=== PATIENT | female | born 1975 | race American Indian/Alaskan Native ===

== ENCOUNTER 2020-01-23 21:51 | Inpatient (IN) | payer SELFPAY ==
[2020-01-24] MEDS ORDERED: Labetalol HCl 100 MG/20 ML VIAL SLOW IVP PRN (00:57)
[2020-01-24] MEDS ORDERED: Promethazine HCl 12.5 MG in Sodium Chloride 0.9% 50 ML IVPB PRN (00:57)
[2020-01-24] MEDS ORDERED: Guaifenesin DM 100-10/5 ML UDCUP PO PRN (00:57)
[2020-01-24] MEDS ORDERED: hydrALAZINE 20 MG/ML VIAL SLOW IVP PRN (00:57)
[2020-01-24] MEDS ORDERED: Acetaminophen 325 MG TAB PO PRN (00:57)
[2020-01-24] MEDS ORDERED: cloNIDine 0.1 MG TAB PO PRN (00:57)
[2020-01-24] MEDS ORDERED: Ondansetron PF 4 MG/2 ML Vial IVP PRN (00:57)
[2020-01-24] MEDS ORDERED: Bisacodyl 5 MG TAB PO PRN (00:59)
[2020-01-24] MEDS ORDERED: Bisacodyl 10 MG SUPP PR PRN (00:59)
--- NOTE | 2020-01-24 01:01 | PDOC.HHP ---
Hospitalist HPI - History of Present Illness Edema History of Present Illness: Patient is a 44 year old female with PMH autoimmune hepatitis who presents as transfer from [place] for 1 week bilateral lower extremity swelling and COLIN with 1-2 blocks walking. PAtient reports autoimmune hepatitis appx 10 years ago , had a biopsy but does not remember what treatment has been done. She drank some pickle juice a week ago. she reports PND, COLIN. she has 3-4+ pitting edema, bibasilar rales, signs of overload on CXR, BNP noted 3000+. She denies history of heart disease. No chest pain. saw pcp dr morales earlier who referred her to ED. moved here 9 years ago, used to take medication but cannot remember what. has history of HTN untreated as well. denies history of DVT, PE, cardiac workup. no fever, cough, chest pain. Patient transferred for workup of volume overload. Hospitalist ROS - Review of Systems Constitutional: denies: fever, chills, sweats, weakness, malaise, other Eyes: denies: pain, vision change, conjunctivae inflammation, eyelid inflammation, redness, other ENT: denies: ear pain, ear discharge, nose pain, nose discharge, nose congestion , mouth pain, mouth swelling, throat pain, throat swelling, other Respiratory: reports: SOB with excertion. denies: cough, dry, shortness of breath, hemoptysis, pleuritic pain, sputum, wheezing, other Cardiovascular: reports: edema. denies: chest pain, palpitations, orthopnea, paroxysmal noc. dyspnea, light headedness, other Gastrointestinal: denies: nausea, vomiting, abdominal pain, diarrhea, constipation, melena, hematochezia, other Genitourinary: denies: dysuria, frequency, incontinence, hematuria, retention, other Musculoskeletal: denies: neck pain, shoulder pain, arm pain, back pain, hand pain, leg pain, foot pain, other Skin: denies: rash, lesions, melissa, bruising, other Neurological: denies: weakness, numbness, incoordination, change in speech, confusion, seizures, other All other systems reviewed; all pertinent +/- noted in HPI/Subj Hospitalist History - Past Medical History Other Medical History: autoimmune hepatitis avascular necrosis of knee - Past Surgical History Past Surgical History: reports: Other Surgical History: liver biopsy - Family History Other Family History: sister with rheumatoid arthritis - Social History Smoking Status: Never smoker Alcohol: reports: None Drugs: reports: none - Exam General Appearance: NAD, awake alert Eye: PERRL, anicteric sclera ENT: normocephalic atraumatic, no oropharyngeal lesions, moist mucosa Neck: supple, symmetric, no JVD, no thyromegaly, no lymphadenopathy, no carotid bruit Heart: RRR, no murmur, no gallops, no rubs, normal peripheral pulses Respiratory: CTAB, no wheezes, no rales, no ronchi, normal chest expansion, no tachypnea, normal percussion Respiratory - other findings: +crackles Gastrointestinal: soft, non-tender, non-distended, normal bowel sounds, no palpable masses, no hepatomegaly, no splenomegaly, no bruit Extremities: no cyanosis, no clubbing Extremities - other findings: 3+ puitting edema Skin: normal turgor, no lesions, no rashes Neurological: cranial nerve grossly intact, normal sensation to touch, no weakness, no focal deficits, no new deficit Musculoskeletal: normal tone, normal strength, no muscle wasting Psychiatric: normal affect, normal behavior, A&O x 3 Hospitalist Results - Labs Result Diagrams: 01/24/20 04:19 01/24/20 04:19 Lab results: reviewed, see HPI for pertinent positives Additional comment: outside CXR report reviewed, possible CHF, possible RLL atalectasis with leevated hemidiaphragm - EKG Interpretation EKG: sinus tachycardia rate 121, no st elevation or dropped beats Hospitalist H&P A/P - Plan Plan: Patient is a 44 year old female with PMH autoimmune hepatitis who presents as transfer from [place] for 1 week bilateral lower extremity swelling and COLIN with 1-2 blocks walking. # pedal edema, weight gain, volume overload on imaging - patient with history of autoimmune hepatitis and now presents with 30 lb weight gain, pedal edema, COLIN, labs and imaging suggestive of fluid overload, suspect CHF vs decompensated cirrhosis - admitted to floor - start diuresis with lasix - ordered echo and US abdomen to help localize which organ is failing, also ordered basic labs which may help to localize further, consider getting specialist input from GI or cardiology based on results - follow up CTA report once finalized # history of AI hepatitis - as above # htn - not treated at home, prn meds ordered, follow bps # UTI - weakly positive UA, in setting of CHF exacerbtaion or other organ failure will start ceftriaxone, culture ordered in [place]
[2020-01-24 01:13] LABS: #Basophils 0.1 thou/uL (0.0-0.2); #Eosinphils 0.2 thou/uL (0.0-0.7); #Lymphocytes 0.8 thou/uL (1.20-3.40); #Monocytes 0.7 thou/uL (0.11-0.59); #Neutrophils 4.5 thou/uL (1.40-6.50); %Basophils 0.9 % (0.0-1.0); %Eosinophils 2.9 % (0.0-10.0); %Lymphocytes 12.8 % (21.0-51.0); %Monocytes 11.5 % (0.0-10.0); %Neutrophils 71.9 % (42.0-75.0); Hemoglobin 10.1 g/dL (12.0-16.0); Mean Corpuscular HGB CONC 31.9 g/dL (32.0-36.0); Mean Corpuscular Hemoglobin 24.2 pg (27.0-31.0); Mean Platelet Volume 8.8 fL (7.4-10.4); Platelet Count 337 thou/uL (130-400); RBC Distribution Width 17.2 % (11.5-14.5); Red Blood Cell (RBC) Count 4.19 mill/uL (4.20-5.40); White Blood Cell (WBC) Count 6.3 thou/uL (4.8-10.8)
[2020-01-24 01:14] VITALS: BMI 23.2
[2020-01-24 01:30] LABS: Lactic Acid 1.4 mmol/L (0.5-2.2)
[2020-01-24 01:37] LABS: BHCG - Serum Negative (NEGATIVE); Pregs Control Background? CLEAR/WHITE (CLR/WHITE); Pregs Control Bar Appear? YES (CONTROL BAR)
[2020-01-24 01:39] LABS: ALT (SGPT) 47 U/L (8-55); AST (SGOT) 77 U/L (5-34); Albumin 3.2 g/dL (3.5-5.0); Alkaline Phosphatase 89 U/L (40-110); Anion Gap 13 mmol/L (10-20); BUN (Urea Nitrogen) 12 mg/dL (7.0-18.7); Bilirubin, Total 1.1 mg/dL (0.2-1.2); Calc. Creatinine Clearance 67 mL/min (70-130); Calcium 8.7 mg/dL (7.8-10.44); Carbon Dioxide 24 mmol/L (22-29); Chloride 100 mmol/L (98-107); Estimated GFR-MDRD 61; Globulin 3.9 g/dL (2.4-3.5); Glucose 98 mg/dL (70-105); Lipase 38 U/L (8-78); Potassium 3.4 mmol/L (3.5-5.1); Protein, Total 7.1 g/dL (6.0-8.3); Sodium 134 mmol/L (136-145)
[2020-01-24 02:07] LABS: CKMB 7.9 ng/mL (0-6.6)
[2020-01-24 04:43] LABS: #Basophils 0.1 thou/uL (0.0-0.2); #Eosinphils 0.2 thou/uL (0.0-0.7); #Monocytes 0.9 thou/uL (0.11-0.59); #Neutrophils 4.7 thou/uL (1.40-6.50); %Basophils 1.5 % (0.0-1.0); %Monocytes 12.3 % (0.0-10.0); %Neutrophils 68.3 % (42.0-75.0); Hemoglobin 9.9 g/dL (12.0-16.0); INR-International Normal Ratio 1.4; Mean Corpuscular HGB CONC 29.9 g/dL (32.0-36.0); Mean Corpuscular Hemoglobin 22.8 pg (27.0-31.0); Platelet Count 339 thou/uL (130-400); Prothrombin Time 17.3 sec (12.0-14.7); RBC Distribution Width 17.3 % (11.5-14.5); Red Blood Cell (RBC) Count 4.33 mill/uL (4.20-5.40); White Blood Cell (WBC) Count 6.9 thou/uL (4.8-10.8)
[2020-01-24 05:12] LABS: ALT (SGPT) 48 U/L (8-55); AST (SGOT) 75 U/L (5-34); Albumin 3.2 g/dL (3.5-5.0); Alkaline Phosphatase 87 U/L (40-110); Bilirubin, Direct 0.8 mg/dL (0.1-0.3)
[2020-01-24 05:15] LABS: Anion Gap 14 mmol/L (10-20); BUN (Urea Nitrogen) 11 mg/dL (7.0-18.7); Calc. Creatinine Clearance 74 mL/min (70-130); Calcium 8.6 mg/dL (7.8-10.44); Carbon Dioxide 21 mmol/L (22-29); Chloride 102 mmol/L (98-107); Estimated GFR-MDRD 70; Glucose 79 mg/dL (70-105); Magnesium 1.6 mg/dL (1.6-2.6); Potassium 3.4 mmol/L (3.5-5.1); Sodium 134 mmol/L (136-145)
[2020-01-24 05:31] LABS: CKMB 7.3 ng/mL (0-6.6); Critical Call CKMB RESULT DECREASING
--- NOTE | 2020-01-24 07:45 | ULT ---
US Gallbladder RUQ History: Edema. Evaluate for cirrhosis Comparison: Reference is made to a CT of the chest prior day Findings: Real-time grayscale and color evaluation right upper quadrant of the abdomen was performed. Moderate-large right layering pleural effusion. Mild contour nodularity of the liver. No mass. Mild congestive changes of the gallbladder. Right kidney measures 10.7 x 5.3 x 5 cm without mass, hyd ronephrosis or abnormal calcifications. No intrahepatic or extra hepatic biliary dilatation. No cholelithiasis. Pancreas not well seen. No dilatation of the common bile duct. Impression: 1. Mild surface nodularity of the liver suggesting early cirrhosis. 2. Large right layering pleural effusion. 3. Patent main portal vein with antegrade flow. 4. Congestive changes of the gallbladder.
[2020-01-24] MEDS: Enoxaparin Sodium 40 MG/0.4 ML SYRINGE SC SCH (08:59)
[2020-01-24] MEDS: Aspirin 81 mg Enteric Coated Tablet PO SCH (08:59)
[2020-01-24] MEDS: Famotidine 20 MG TAB PO SCH ×2 (09:00→21:23)
[2020-01-24] MEDS: Furosemide 40 MG TAB PO SCH ×2 (09:00→13:10)
[2020-01-24 09:53] LABS: Iron 16 ug/dL (50-170); Iron Binding Capacity, Total 479 mcg/dL (265-497)
[2020-01-24] MEDS ORDERED: Carvedilol 3.125 MG TAB PO SCH ×2 (11:45→17:00)
[2020-01-24] MEDS ORDERED: Potassium Chloride 20 MEQ TAB PO SCH ×2 (11:45→18:00)
[2020-01-24] MEDS ORDERED: Furosemide 20 MG/2 ML VIAL SLOW IVP SCH (13:15)
--- NOTE | 2020-01-24 14:31 | CON ---
DATE OF CONSULTATION: 01/24/2020 REASON FOR CONSULTATION: Congestive heart failure, systolic, acute on chronic. HISTORY OF PRESENT ILLNESS: Ms. Monroy is a 44-year-old woman she has noted some swelling of her legs, then she noticed some difficulty breathing, and then finally difficulty breathing when she tried to lie down. She did not have chest pain or pressure. Otherwise, the patient has been in relatively good physical condition without any medicine. No previous cardiac history. She has been found to have severely depressed left ventricular function on echocardiogram. ALLERGIES: AMOXICILLIN, SULFA. REVIEW OF SYSTEMS: CONSTITUTIONAL: No significant weight gain or loss. VISION: No changes. HEARING: No changes. PULMONARY: No cough or wheezing. GASTROINTESTINAL: No nausea, vomiting, or diarrhea. SKIN: No rashes. NEUROLOGIC: No unilateral weakness or numbness. PSYCHIATRIC: No unusual depression or anxiety. CARDIAC: From a cardiac standpoint, did not have any chest pain. She did have shortness of breath and swelling as mentioned. PHYSICAL EXAMINATION: GENERAL: This is a very pleasant 44-year-old woman. VITAL SIGNS: Height 5 feet 2 inches tall, weight 125 pounds, petite. Blood pressure 122/87, pulse is 118, sinus. EYES: Sclerae nonicteric. MOUTH: Mucous membranes moist. NECK: Supple. No lymphadenopathy. LUNGS: Clear. CARDIAC: She is tachycardic . No murmur, rub, or gallop. ABDOMEN: Soft and nontender. EXTREMITIES: Warm, dry. No clubbing or cyanosis. There is moderate peripheral edema. PERTINENT LABORATORY DATA: Potassium is 3.4, it was 3.9 on the . The I and O are minus 960. Echocardiogram shows severely depressed left ventricular function with an ejection fraction of 15% to 20% and very dilated left ventricle. Also, severe mitral regurgitation, severe tricuspid insufficiency. EKG, sinus rhythm with some T-wave inversions in the lateral leads. ASSESSMENT: 1. Probable cardiomyopathy with global hypokinesis, enlarged right atrium and left atrium, and globally hypokinetic left ventricle. 2. Mitral regurgitation, probably secondary to dilated left ventricle. 3. Sinus tachycardia. PLAN: 1. Agree with beta blockers. 2. We will start Entresto tonight. 3. Continue diuretics. 4. She also had an episode of nonsustained ventricular tachycardia, she will need a LifeVest before going home. We will continue to follow with you. We will try to get her on therapeutic doses of Entresto and beta blockers. Ultimately, catheterization should be considered, but seems very likely this is a cardiomyopathy, not coronary artery disease. We will follow with you. Job ID: [id number]
[2020-01-24 15:05] LABS: Iron 15 ug/dL (50-170); Iron Binding Capacity, Total 509 mcg/dL (265-497)
--- NOTE | 2020-01-24 15:10 | PDOC.EVN ---
Event Note - Event Note Event Note: Patient was seen and examined. Records reviewed. Patient is from [place]. She has lived here for the last 9 years. She has not reestablished with her medical team in this area. She does have a history of the autoimmune hepatitis for which she was taking azathioprine. She stopped taking that when she moved here. She presented with significant peripheral edema. She does reportedly have some abdominal distention at times as well. She is feeling better after some diuresis. Her exam was notable for hyperdynamic cardiac exam and persistent 2-3+ pitting edema of the lower extremities bilaterally. I have reviewed the case with cardiology. Her echocardiogram shows a substantially reduced ejection fraction at 15 to 20% with severe TR. There is global hypokinesis consistent with a cardiomyopathy that is likely nonischemic. She was started on Coreg. Cardiology will initiate Entresto. We will continue to diurese and titrate her medications. She will need a LifeVest. I also reviewed the case with GI. At this point the autoimmune hepatitis is likely not significantly active. He did not feel there was an indication to resume steroids at this time especially in light of the cardiac situation. We will obtain a TSH as she remains persistently tachycardic.
[2020-01-24 15:28] LABS: HBCM Index 0.51 S/CO (0-0.79); HBSAg Index 0.17 S/CO (0-0.99); Hep A IgM AB Non-Reactive (NonReactive); Hep B Surf Ag Non-Reactive S/CO (NonReactive); Hep C IgG Ab Non-Reactive (NonReactive); Hep C Index 0.15 S/CO (0-0.79); Hepatitis B Core IgM Abs Non-Reactive (NonReactive); Thyroid Stimulating Hormone 1.9797 uIU/mL (0.35-4.94)
--- NOTE | 2020-01-24 16:19 | CON ---
DATE OF CONSULTATION: 01/24/2020 REQUESTING PHYSICIAN: Tim Rasmussen MD REASON FOR CONSULTATION: History of autoimmune hepatitis, new fluid retention. HISTORY OF PRESENT ILLNESS: Milagros Monroy is a very pleasant 44-year-old woman who moved to the area a couple of years ago from [place]. She reports no prior history of cardiac disease. She says that about 9 years ago she presented with jaundice and was diagnosed eventually with autoimmune hepatitis on the basis of liver biopsy in [place]. She says she was treated with prednisone and then with azathioprine for several years. She reports that she discontinued the azathioprine on her own 2 or 3 years ago around the time she moved here, and never followed up with any GI or liver specialist since then. However, she had been doing very well, had no symptoms. She takes no medications, but then just over the past week, she has had acute development of severe lower extremity edema, dyspnea on exertion, and a 30-pound weight gain. She was having shortness of breath and abdominal distention and this all prompted her presentation. On admission, she was found to have a very elevated BNP, AST is elevated to 75, but otherwise LFTs are all normal. INR is 1.4. She had a CT angiogram of the chest, which showed large right pleural effusion, but no pulmonary embolus. She has developed anasarca with contrast reflux into the IVC. Abdominal ultrasound showed mild nodular liver contour, but was otherwise unremarkable with normal portal vein, but an echocardiogram earlier today showed severe global hypokinesis with ejection fraction 15% to 20%, severe mitral regurgitation and tricuspid regurgitation, all suggestive of cardiomyopathy. She has received Lasix for diuresis and is already feeling a lot better with regard to her shortness of breath and abdominal distention. She has been evaluated by Dr. Hayward earlier today. We are consulted due to the history of autoimmune hepatitis. The patient denies any history of recent jaundice. She never had any prior history of ascites or GI bleeding. There is no nausea or vomiting or abdominal pain. REVIEW OF SYSTEMS: Full review of systems including constitutional; head, eyes, ears, nose, and throat; GI; ; cardiovascular; respiratory; musculoskeletal; neurologic systems is negative except as noted in the HPI. PAST MEDICAL HISTORY: 1. Autoimmune hepatitis, evidently diagnosed in [place] about 9 years ago, off all medications for the past couple of years. 2. Hypertension. 3. Avascular necrosis of the knee. 4. . 5. Liver biopsy 8 or 9 years ago. ALLERGIES: AMOXICILLIN, SULFA, AND AZITHROMYCIN. MEDICATIONS: Outpatient medications: None. Inpatient medications: 1. Aspirin 81 mg daily. 2. Lovenox. 3. Pepcid 20 mg b.i.d. 4. Levofloxacin 750 mg daily. 5. Lasix 40 mg twice daily. FAMILY HISTORY: A sister had rheumatoid arthritis. SOCIAL HISTORY: No smoking, alcohol, or drug use. PHYSICAL EXAMINATION: VITAL SIGNS: Temperature 99.1, pulse 119, blood pressure 122/87, and 98% oxygen saturation on room air. GENERAL: A 44-year-old woman, sitting up in chair comfortably, in no distress. MENTAL: Alert and fully oriented. Pleasant, conversational. SKIN: No jaundice. No rashes were palpable. EYES: No scleral icterus. Extraocular movements intact. ENT: Mucous membranes moist. No oral lesions. LYMPHATICS: No submandibular or supraclavicular lymphadenopathy. THYROID: Nontender to palpation. HEART: Regular, tachycardia. Soft systolic murmur. LUNGS: Distant breath sounds on the right. Bibasilar crackles. No respiratory distress. ABDOMEN: Nondistended. Bowel sounds present. Soft and nontender to palpation throughout. EXTREMITIES: 2 to 3+ bilateral lower extremity pitting edema. NEUROLOGIC: Cranial nerves 2 through 12 intact bilaterally. VESSELS: Radial pulses 2+ bilaterally. LABORATORY STUDIES: BNP greater than 3000. WBC 6.9, hemoglobin 9.9, and platelets 339. INR 1.4. Sodium 134, potassium 3.4, BUN 11, creatinine 0.88, and glucose 79. Total bilirubin 1.0, alkaline phosphatase 87, AST 75, ALT 48, and albumin 3.2. CK 211 and troponin 0.03. Lipase only 38. Serum test negative. IMAGING STUDIES: Abdominal ultrasound shows mild nodular liver contour, no evidence of gallstones, normal common bile duct, there is a large right pleural effusion, and normal patent portal vein. CT angiogram of the chest showed no evidence of pulmonary embolus, there is a large right pleural effusion, she has anasarca, there is contrast reflux into the inferior vena cava. Echocardiogram shows ejection fraction of 15% to 20% with severe global hypokinesis, severe mitral regurgitation and tricuspid regurgitation, all suggestive of cardiomyopathy. ASSESSMENT AND PLAN: 1. Acute congestive heart failure. 2. Anasarca, secondary to acute congestive heart failure. 3. Dilated cardiomyopathy with global hypokinesis. 4. History of autoimmune hepatitis, on no treatment in the past couple of years. The patient does have a mild elevation in AST, but this may just be from passive hepatic congestion with her heart failure. I do not think it is likely that this represents active autoimmune hepatitis. It sounds like this was diagnosed about 9 years ago and was very stable on medication until at least a couple of years ago. I discussed with the patient that in many cases if LFTs remain normal the azathioprine can be discontinued after a few years and the hepatitis will often not recur. This may be the case with her. I think her current presentation is far more likely related to her severe dilated cardiomyopathy. From the liver standpoint, we will get some further lab workup including autoimmune markers, total IgG level, will rule out viral hepatitis, get iron studies, TSH, etc., but I do not anticipate any further aggressive liver workup. I see no indication to restart steroids or even azathioprine at this time. Continue with Cardiology evaluation and diuresis. Thank you for the consultation. We will follow along. Job ID: [id number]
[2020-01-24 18:59] LABS: ANA Symphony (Qualitative) POSITIVE (Negative); ANA Symphony (Quantitative) 1.9 Ratio (< 0.7 Negative); CENP IgG Antibody Less than 0.4 EliAU/mL (<7 Negative); EliA Vaculitis New Method **** NEW METHOD ****; Jo-1 IgG Antibody Less than 0.3 EliAU/mL (<7 Negative); Mitochondrial Ab Greater than 220.0 U/mL (<4 Negative); RNP70 IgG Antibody 0.3 EliAU/mL (<7 Negative); SSB/La IgG Antibody Less than 0.3 EliAU/mL (<7 Negative); Scleroderma-70 IgG Antibody 1.9 EliAU/mL (<7 Negative); Smith D IgG Antibody 4.3 EliAU/mL (<7 Negative); dsDNA IgG Antibody 1.1 IU/mL (<10 Negative)
[2020-01-25 05:21] LABS: Anion Gap 11 mmol/L (10-20); BUN (Urea Nitrogen) 9 mg/dL (7.0-18.7); Calc. Creatinine Clearance 72 mL/min (70-130); Calcium 7.8 mg/dL (7.8-10.44); Carbon Dioxide 25 mmol/L (22-29); Chloride 99 mmol/L (98-107); Estimated GFR-MDRD 68; Glucose 83 mg/dL (70-105); Magnesium 1.3 mg/dL (1.6-2.6); Potassium 3.6 mmol/L (3.5-5.1); Sodium 131 mmol/L (136-145)
[2020-01-25 05:34] LABS: #Basophils 0.1 thou/uL (0.0-0.2); #Eosinphils 0.3 thou/uL (0.0-0.7); #Lymphocytes 0.8 thou/uL (1.20-3.40); #Monocytes 0.7 thou/uL (0.11-0.59); #Neutrophils 4.6 thou/uL (1.40-6.50); %Eosinophils 5.1 % (0.0-10.0); %Lymphocytes 11.7 % (21.0-51.0); %Monocytes 10.4 % (0.0-10.0); %Neutrophils 71.8 % (42.0-75.0); Mean Corpuscular HGB CONC 29.9 g/dL (32.0-36.0); Mean Corpuscular Hemoglobin 23.6 pg (27.0-31.0); Mean Platelet Volume 8.7 fL (7.4-10.4); Platelet Count 321 thou/uL (130-400); RBC Distribution Width 17.7 % (11.5-14.5); Red Blood Cell (RBC) Count 4.67 mill/uL (4.20-5.40); White Blood Cell (WBC) Count 6.4 thou/uL (4.8-10.8)
[2020-01-25] MEDS: Furosemide 20 MG/2 ML VIAL SLOW IVP SCH ×2 (06:21→14:40)
[2020-01-25] MEDS ORDERED: Potassium Chloride 20 MEQ TAB PO SCH (08:15)
[2020-01-25] MEDS ORDERED: Magnesium Sulfate 3 GM in Sodium Chloride 0.9% 100 ML IVPB SCH (08:30)
[2020-01-25] MEDS: Enoxaparin Sodium 40 MG/0.4 ML SYRINGE SC SCH (09:03)
[2020-01-25] MEDS: Famotidine 20 MG TAB PO SCH (09:04)
[2020-01-25] MEDS: Aspirin 81 mg Enteric Coated Tablet PO SCH (09:04)
[2020-01-25] MEDS: Carvedilol 3.125 MG TAB PO SCH ×2 (09:05→17:37)
--- NOTE | 2020-01-25 11:19 | PRG ---
DATE OF SERVICE: 01/25/2020 SUBJECTIVE: The patient is feeling much better today. She has had good diuresis with 5100 mL out measured over the past day. She feels her leg swelling is less tense. Her breathing is much easier. There is no abdominal pain. No jaundice. No nausea or vomiting. OBJECTIVE: VITAL SIGNS: Temperature 97.8, pulse 93, blood pressure 98/63, 98% oxygen saturation on room air. GENERAL: Appearing well, sitting up in chair comfortably. HEART: Regular rate and rhythm. LUNGS: Clear to auscultation bilaterally. ABDOMEN: Nondistended, soft, and nontender to palpation. EXTREMITIES: 2+ bilateral pitting edema in the lower extremities. LABORATORY STUDIES: Sodium 131, potassium 3.6, BUN 9, creatinine 0.90, magnesium 1.3. Ferritin 13.48, iron 15, TIBC 509. BNP elevated to 2757.2. TSH 1.98. Total bilirubin 1.0, direct bilirubin 0.8, alkaline phosphatase 87, AST 75, ALT 48, albumin 3.2. KIRT is positive. Total IgG is elevated to 1982. AMA is also positive at greater than 220. ASMA is pending. Viral hepatitis serologies are all negative. ASSESSMENT AND PLAN: 1. Acute congestive heart failure. 2. Anasarca secondary to acute congestive heart failure. 3. Dilated cardiomyopathy with global hypokinesis. 4. History of autoimmune hepatitis, previously treated with azathioprine, off treatment for the past several years. KIRT came back positive, consistent with her reported history of autoimmune hepatitis. Total IgG is mildly elevated, but again note that LFTs are normal with the exception of only mild elevation in AST. It does not appear the autoimmune hepatitis is active. She may indeed have early cirrhosis, but the primary reason for her presentation is this new dilated cardiomyopathy. Interestingly, the AMA is also elevated, but with normal alkaline phosphatase, this does not fit primary biliary cholangitis. I would not recommend putting her through liver biopsy again at this time. I would not recommend steroids at this time. GI will sign off, but I would like to see her back in clinic in the next month or two, we will try to get records from her prior liver evaluation including liver biopsy, continue liver surveillance on an outpatient basis. GI will sign off, but please call back anytime with questions or concerns. Job ID: [id number]
[2020-01-25] MEDS ORDERED: Communication Order-Pharmacy FS SCH (14:15)
--- NOTE | 2020-01-25 14:52 | PRG ---
DATE OF SERVICE: SUBJECTIVE: Ms. Monroy feels much better. Her breathing is improved. OBJECTIVE: VITAL SIGNS: Her blood pressure 102/67, pulse is in the 90s. LUNGS: Clear. CARDIAC: Normal S1, normal S2. ABDOMEN: Soft, nontender. EXTREMITIES: There is still moderate edema. ASSESSMENT: 1. Congestive heart failure, systolic, acute on chronic, improving. 2. KIRT is positive. PLAN: 1. Increase Entresto. 2. Continue carvedilol. 3. She is iron deficient. We will go ahead and start iron. I think it would be a good idea to give her some intravenous iron. 4. Proceed to cardiac catheterization Tuesday. Risk of stroke, heart attack, iodine allergy, loss of blood supply to leg or kidney, stent thrombosis, stent restenosis, all discussed. She understands and wished to proceed. Job ID: [id number]
[2020-01-25] MEDS: Iron, Sodium Ferric Gluconate 250 MG in Sodium Chloride 0.9% 100 ML IVPB SCH ×2 (16:48→22:22)
--- NOTE | 2020-01-25 19:11 | PDOC.HOSPP ---
- Subjective Encounter Date: 01/25/20 Subjective: Feeling significantly better. She feels like she is breathing more comfortably and feels like the medications are helping. She does report continued regular menstrual cycles. - Objective Vital Signs & Weight: Vital Signs (12 hours) Temp Pulse Resp BP BP Pulse Ox 01/25/20 16:20 97.6 F 90 16 99/62 100 01/25/20 11:17 97.4 F L 92 19 102/67 100 01/25/20 09:15 98 01/25/20 09:02 97.8 F 93 16 98/63 98 Weight Weight 125 lb 8 oz I&O: 01/24/20 01/25/20 01/26/20 06:59 06:59 06:59 Intake Total 240 1380 1080 Output Total 1200 5100 2800 Balance -512 -4316 -5146 Result Diagrams: 01/25/20 04:50 01/25/20 04:50 Hospitalist ROS - Medication Medications: Active Medications Generic Name Dose Route Start Last Admin Trade Name [place] PRN Reason Stop Dose Admin Aspirin 81 mg 01/24/20 09:00 01/25/20 09:04 Ecotrin PO 81 mg DAILY JUANJO Administration Carvedilol 3.125 mg 01/25/20 08:00 01/25/20 17:37 Coreg PO 3.125 mg BID-WM JUANJO Administration Enoxaparin Sodium 40 mg 01/24/20 09:00 01/25/20 09:03 Lovenox SC 01/27/20 23:59 40 mg 0900 JUANJO Administration Furosemide 20 mg 01/25/20 06:00 01/25/20 14:40 Lasix SLOW IVP 20 mg 0600,1400 JUANJO Administration Ferric Sodium Gluconate 120 mls @ 60 mls/hr 01/25/20 15:00 01/25/20 16:48 Complex 250 mg/ Sodium IVPB 01/26/20 04:59 120 mls Chloride 0300,1500 JUANJO Administration - Exam General Appearance: NAD, awake alert Heart: RRR, no murmur, no gallops, no rubs, normal peripheral pulses Respiratory: CTAB, no wheezes, no rales, no ronchi, normal chest expansion, no tachypnea, normal percussion Gastrointestinal: soft, non-tender, non-distended, normal bowel sounds, no palpable masses, no hepatomegaly, no splenomegaly, no bruit Extremities: no cyanosis, no clubbing, no edema Skin: normal turgor Musculoskeletal: normal tone Psychiatric: normal affect, normal behavior, A&O x 3 Hosp A/P (1) Autoimmune hepatitis Code(s): K75.4 - AUTOIMMUNE HEPATITIS Status: Acute (2) Cardiomyopathy Code(s): I42.9 - CARDIOMYOPATHY, UNSPECIFIED Status: Acute (3) Acute systolic (congestive) heart failure Code(s): I50.21 - ACUTE SYSTOLIC (CONGESTIVE) HEART FAILURE Status: Acute (4) Iron deficiency anemia Code(s): D50.9 - IRON DEFICIENCY ANEMIA, UNSPECIFIED Status: Acute (5) Peripheral edema Code(s): R60.9 - EDEMA, UNSPECIFIED Status: Acute (6) Hypomagnesemia Code(s): E83.42 - HYPOMAGNESEMIA Status: Acute - Plan Autoimmune hepatitis: Patient has a history of autoimmune hepatitis. She appears to have some signs of cirrhosis on imaging here. Her work-up did come back with findings consistent with autoimmune hepatitis based on her rheumatology panel. Appreciate GI consult. Currently there is no intention to resume immunosuppression therapy or steroids. GI will follow the patient up in the outpatient setting. Acute systolic congestive heart failure: Secondary to cardiomyopathy with global hypokinesis. Less likely that this would be ischemic in nature. She is currently on Entresto and Coreg. Cardiology is titrating as tolerated. Diuresing. Overall she appears to be improving. Had a long discussion regarding the cardiomyopathy and the likely nature of it. Explained the need for a LifeVest in the process for determining the potential need for an implantable defibrillator in the future. Iron deficiency anemia: Patient is a menstruating female with fairly regular cycles. She has been given IV iron. Will initiate oral iron supplementation. Hypomagnesemia: IV magnesium repletion.
[2020-01-25] MEDS ORDERED: diphenhydrAMINE 50 MG/ML VIAL IVP SCH (20:00)
[2020-01-26 04:31] LABS: #Basophils 0.1 thou/uL (0.0-0.2); #Eosinphils 0.3 thou/uL (0.0-0.7); #Lymphocytes 1.3 thou/uL (1.20-3.40); #Monocytes 0.8 thou/uL (0.11-0.59); #Neutrophils 6.2 thou/uL (1.40-6.50); %Basophils 0.7 % (0.0-1.0); %Eosinophils 3.4 % (0.0-10.0); %Lymphocytes 14.4 % (21.0-51.0); %Monocytes 9.5 % (0.0-10.0); Hemoglobin 11.8 g/dL (12.0-16.0); Mean Corpuscular Hemoglobin 22.9 pg (27.0-31.0); Mean Corpuscular Volume 76.5 fL (78.0-98.0); Mean Platelet Volume 9.3 fL (7.4-10.4); Platelet Count 382 thou/uL (130-400); RBC Distribution Width 17.3 % (11.5-14.5); Red Blood Cell (RBC) Count 5.16 mill/uL (4.20-5.40); White Blood Cell (WBC) Count 8.7 thou/uL (4.8-10.8)
[2020-01-26 04:47] LABS: Anion Gap 12 mmol/L (10-20); BUN (Urea Nitrogen) 8 mg/dL (7.0-18.7); Calc. Creatinine Clearance 73 mL/min (70-130); Calcium 7.8 mg/dL (7.8-10.44); Carbon Dioxide 23 mmol/L (22-29); Chloride 100 mmol/L (98-107); Estimated GFR-MDRD 75; Glucose 79 mg/dL (70-105); Magnesium 1.8 mg/dL (1.6-2.6); Sodium 131 mmol/L (136-145)
[2020-01-26] MEDS: Furosemide 20 MG/2 ML VIAL SLOW IVP SCH (05:53)
[2020-01-26] MEDS: Carvedilol 3.125 MG TAB PO SCH ×2 (08:43→17:26)
[2020-01-26] MEDS: Aspirin 81 mg Enteric Coated Tablet PO SCH (08:43)
[2020-01-26] MEDS: Ferrous Sulfate 325 MG TAB PO SCH (08:43)
[2020-01-26] MEDS: Enoxaparin Sodium 40 MG/0.4 ML SYRINGE SC SCH (08:43)
[2020-01-26] MEDS: diphenhydrAMINE 25 MG CAP PO PRN ×2 (09:55→20:27)
[2020-01-26] MEDS: Furosemide 20 MG TAB PO SCH (09:55)
--- NOTE | 2020-01-26 11:33 | PDOC.HOSPP ---
- Subjective Encounter Date: 01/26/20 Subjective: Feeling much better overall. She is able to get up and move around the room much better now. She did have some type of rash and itch related to the infusion of the IV iron. Continues to be pruritic. - Objective Vital Signs & Weight: Vital Signs (12 hours) Temp Pulse Resp BP Pulse Ox 01/26/20 07:45 97.5 F L 86 16 97/66 99 01/26/20 04:00 97.6 F 84 20 92/50 L 96 01/25/20 23:35 87/58 L Weight Weight 116 lb 9.6 oz I&O: 01/25/20 01/26/20 01/27/20 06:59 06:59 06:59 Intake Total 1380 1320 Output Total 5100 5000 Balance -3209 -2840 Result Diagrams: 01/26/20 04:01 01/26/20 04:01 Additional Labs: Accuchecks 01/25/20 21:00 POC Glucose 102 Hospitalist ROS - Medication Medications: Active Medications Generic Name Dose Route Start Last Admin Trade Name Freq PRN Reason Stop Dose Admin Aspirin 81 mg 01/24/20 09:00 01/26/20 08:43 Ecotrin PO 81 mg DAILY JUANJO Administration Carvedilol 3.125 mg 01/25/20 08:00 01/26/20 08:43 Coreg PO 3.125 mg BID-WM JUANJO Administration Diphenhydramine HCl 25 mg 01/26/20 08:27 01/26/20 09:55 Benadryl PO 25 mg Q6H PRN Administration Itching & Insomnia Enoxaparin Sodium 40 mg 01/24/20 09:00 01/26/20 08:43 Lovenox SC 01/27/20 23:59 40 mg 0900 JUANJO Administration Ferrous Sulfate 325 mg 01/26/20 08:00 01/26/20 08:43 Feosol PO Not Given QAM-WM JUAJNO Furosemide 20 mg 01/26/20 09:00 01/26/20 09:55 Lasix PO 20 mg DAILY JUANJO Administration Ondansetron HCl 4 mg 01/24/20 00:57 01/25/20 19:54 Zofran IVP 4 mg Q6H PRN Administration Nausea/Vomiting use 1st Sacubitril/Valsartan 1 tab 01/25/20 21:00 01/26/20 08:43 Entresto 24 Mg-26 Mg Tablet PO 1 tab BID JUANJO Administration - Exam General Appearance: NAD, awake alert Heart: RRR, no murmur, no gallops, no rubs, normal peripheral pulses Respiratory: CTAB, no wheezes, no rales, no ronchi, normal chest expansion, no tachypnea, normal percussion Gastrointestinal: soft, non-tender, non-distended, normal bowel sounds, no palpable masses, no hepatomegaly, no splenomegaly, no bruit Extremities: 2+ LE edema Skin: normal turgor Skin - other findings: Patchy areas of raised erythematous macules over the arms. Musculoskeletal: normal tone, normal strength, no muscle wasting Psychiatric: normal affect, normal behavior, A&O x 3 Hosp A/P (1) Autoimmune hepatitis Code(s): K75.4 - AUTOIMMUNE HEPATITIS Status: Acute (2) Cardiomyopathy Code(s): I42.9 - CARDIOMYOPATHY, UNSPECIFIED Status: Acute (3) Acute systolic (congestive) heart failure Code(s): I50.21 - ACUTE SYSTOLIC (CONGESTIVE) HEART FAILURE Status: Acute (4) Iron deficiency anemia Code(s): D50.9 - IRON DEFICIENCY ANEMIA, UNSPECIFIED Status: Acute (5) Peripheral edema Code(s): R60.9 - EDEMA, UNSPECIFIED Status: Acute (6) Hypomagnesemia Code(s): E83.42 - HYPOMAGNESEMIA Status: Acute (7) Drug eruption Code(s): L27.0 - GEN SKIN ERUPTION DUE TO DRUGS AND MEDS TAKEN INTERNALLY Status: Acute - Plan Autoimmune hepatitis: Patient has a history of autoimmune hepatitis. She appears to have some signs of cirrhosis on imaging here. Her work-up did come back with findings consistent with autoimmune hepatitis based on her rheumatology panel. Appreciate GI consult. Currently there is no intention to resume immunosuppression therapy or steroids. GI will follow the patient up in the outpatient setting. Acute systolic congestive heart failure: Secondary to cardiomyopathy with global hypokinesis. Less likely that this would be ischemic in nature. She is currently on Entresto and Coreg. Cardiology is titrating as tolerated. Her blood pressure has decreased and may limit the ability to more aggressively titrate his medications for now. Diuresing very well. Given her drop in blood pressure in the 9 L that she is diuresed already and can go ahead and cut back on her Lasix a little bit. We will see how she responds to a single oral dose. She clearly still has peripheral edema that needs to be addressed, however she is feeling much better overall therefore the rate of removal can be a little slower. Overall she appears to be improving. Had a long discussion regarding the cardiomyopathy and the likely nature of it. Explained the need for a LifeVest in the process for determining the potential need for an implantable defibrillator in the future. Presently the plan is to consider heart cath on Tuesday. Iron deficiency anemia: Patient is a menstruating female with fairly regular cycles. She received IV iron last night and appears she may have had a bit of an allergic reaction to it. Will initiate oral iron supplementation. Drug eruption: Appears to be related to the iron infusion. Will provide Benadryl and topical hydrocortisone. Hypomagnesemia: IV magnesium repletion.
--- NOTE | 2020-01-26 16:45 | PDOC.CPN ---
- Subjective Date: 01/26/20 Time: 16:41 Interval history: She is feeling much better. Still LE edema but breathing improved. - Review of Systems General: denies: fever/chills, weight/appetite/sleep changes, night sweats, fatigue Respiratory: denies: cough, congestion, shortness of breath, exercise intolerance Cardiovascular: reports: edema. denies: chest pain, palpitation, paroxysmal nocturnal dyspnea, orthopnea Gastrointestinal: denies: nausea, vomiting, diarrhea, constipation, abd pain, GI bleeding Musculoskeletal: denies: pain, tenderness, stiffness, swelling, arthritis/ arthralgias Neurological: denies: numbness, syncope, seizure, weakness - Objective Allergies/Adverse Reactions: Allergies Allergy/AdvReac Type Severity Reaction Status Date / Time amoxicillin Allergy Verified 01/24/20 01:56 Sulfa (Sulfonamide Allergy Verified 01/24/20 01:56 Antibiotics) Visit Medications: Current Medications Acetaminophen (Tylenol) 650 mg PO Q4H PRN PRN Reason: Headache/Fever/Mild Pain (1-3) Albuterol/Ipratropium (Duoneb) 3 ml NEB [id number] PRN PRN Reason: SOB &/or Wheezing Aspirin (Ecotrin) 81 mg PO DAILY [facility] Last Admin: 01/26/20 08:43 Dose: 81 mg Bisacodyl (Dulcolax) 10 mg PO DAILYPRN PRN PRN Reason: Constipation Bisacodyl (Dulcolax) 10 mg [place] DAILYPRN PRN PRN Reason: Constipation Carvedilol (Coreg) 3.125 mg PO BID[facility] Last Admin: 01/26/20 08:43 Dose: 3.125 mg Clonidine (Catapres) 0.1 mg PO BID PRN PRN Reason: SBP > 160 use second Diazepam (Valium) 5 mg PO WILLCALL [facility] Stop: 01/28/20 06:01 Diphenhydramine HCl (Benadryl) 25 mg PO Q6H PRN PRN Reason: Itching & Insomnia Last Admin: 01/26/20 09:55 Dose: 25 mg Enoxaparin Sodium (Lovenox) 40 mg SC 0900 [facility] Stop: 01/27/20 23:59 Last Admin: 01/26/20 08:43 Dose: 40 mg Ferrous Sulfate (Feosol) 325 mg PO QA[facility] Last Admin: 01/26/20 08:43 Dose: Not Given Furosemide (Lasix) 20 mg PO DAILY [facility] Last Admin: 01/26/20 09:55 Dose: 20 mg Guaifenesin/Dextromethorphan (Robitussin Dm) 15 ml PO Q4H PRN PRN Reason: Cough Hydralazine HCl (Apresoline) 10 mg SLOW IVP Q6H PRN PRN Reason: SBP GREATER THAN 160 Hydrocortisone/Aloe (Hydrocortisone 1% Cream) 0 gm TOP BID [facility] Promethazine HCl 12.5 mg/ (Sodium Chloride) 50.5 mls @ 202 mls/hr IVPB Q6H PRN PRN Reason: Nausea/vomiting use second Sodium Chloride (Normal Saline 0.9%) 1,000 mls @ 80 mls/hr IV .[id number] [facility] Labetalol HCl (Normodyne) 20 mg SLOW IVP Q4H PRN PRN Reason: SBP > 160 use third Miscellaneous Information (Communication Order-Pharmacy) 0 each FS ONE [facility] Stop: 01/27/20 23:59 Ondansetron HCl (Zofran) 4 mg IVP Q6H PRN PRN Reason: Nausea/Vomiting use 1st Last Admin: 01/25/20 19:54 Dose: 4 mg Sacubitril/Valsartan (Entresto 24 Mg-26 Mg Tablet) 1 tab PO BID [facility] Last Admin: 01/26/20 08:43 Dose: 1 tab Sodium Chloride (Flush - Normal Saline) 10 ml IVF PRN PRN PRN Reason: Saline Flush Vital Signs & Weight: Vital Signs Temp Pulse Resp BP BP Pulse Ox 01/26/20 15:50 98.0 F 96 16 84/52 L 96 01/26/20 11:25 97.6 F 94 16 85/52 L 99 01/26/20 07:45 97.5 F L 86 16 97/66 99 Weight 116 lb 9.6 oz - Physical Exam General: alert & oriented x3 HEENT: mucus membranes moist Neck: supple neck Cardiac: regular rate and rhythm Lungs: clear to auscultation Neuro: grossly intact Abdomen: active bowel sounds Extremities: 2+ LE edema Skin: clear Musculoskeletal: normal range of motion - Labs Result Diagrams: 01/26/20 04:01 01/26/20 04:01 Troponin/CKMB CK-MB (CK-2) 7.3 ng/mL (0-6.6) H* 01/24/20 04:19 Troponin I 0.027 ng/mL (< 0.028) 01/24/20 07:11 - Telemetry Sinus rhythms and dysrhythmias: sinus rhythm - Assessment/Plan Assessment/Plan: 1. Acute on chronic systolic heart failure. 2. KIRT positive. PLAN: - Continue current medical regimen. - BP borderline low and cannot up titrate any meds. - Plan on [facility] tuesday.
[2020-01-26] MEDS: Hydrocortisone 1% Cream 30 GM TUBE TOP SCH (20:26)
[2020-01-26] MEDS ORDERED: Hydrocortisone 1% Cream 1.5 GM Packet TOP SCH (21:00)
[2020-01-27] MEDS: Ferrous Sulfate 325 MG TAB PO SCH (08:38)
[2020-01-27] MEDS: Furosemide 20 MG TAB PO SCH (08:42)
[2020-01-27] MEDS: diphenhydrAMINE 25 MG CAP PO PRN ×2 (08:42→15:39)
[2020-01-27] MEDS: Enoxaparin Sodium 40 MG/0.4 ML SYRINGE SC SCH (08:42)
[2020-01-27] MEDS: Aspirin 81 mg Enteric Coated Tablet PO SCH (08:42)
[2020-01-27] MEDS: Hydrocortisone 1% Cream 30 GM TUBE TOP SCH ×2 (08:42→20:41)
[2020-01-27] MEDS: Carvedilol 3.125 MG TAB PO SCH ×2 (08:42→17:47)
--- NOTE | 2020-01-27 14:16 | PDOC.HOSPP ---
- Subjective Encounter Date: 01/27/20 Subjective: Patient is doing well. She continues to diurese in spite of being switched to p.o. Lasix. The edema in her lower extremities continues to resolve. She does admit to a little bit of anxiety about the heart cath pending tomorrow. - Objective Vital Signs & Weight: Vital Signs (12 hours) Temp Pulse Resp BP Pulse Ox 01/27/20 11:30 97.4 F L 98 16 91/56 L 97 01/27/20 08:50 102/61 01/27/20 07:25 97.7 F 96 16 98/56 L 100 01/27/20 03:17 97.8 F 105 H 18 107/57 L 96 Weight Weight 105 lb 12.8 oz I&O: 01/26/20 01/27/20 01/28/20 06:59 06:59 06:59 Intake Total 1320 1920 Output Total 5000 5173 Balance -9328 -9994 Result Diagrams: 01/26/20 04:01 01/26/20 04:01 Hospitalist ROS - Medication Medications: Active Medications Generic Name Dose Route Start Last Admin Trade Name Freq PRN Reason Stop Dose Admin Aspirin 81 mg 01/24/20 09:00 01/27/20 08:42 Ecotrin PO 81 mg DAILY JUANJO Administration Carvedilol 3.125 mg 01/25/20 08:00 01/27/20 08:42 Coreg PO 3.125 mg BID-WM JUANJO Administration Diphenhydramine HCl 25 mg 01/26/20 08:27 01/27/20 08:42 Benadryl PO 25 mg Q6H PRN Administration Itching & Insomnia Enoxaparin Sodium 40 mg 01/24/20 09:00 01/27/20 08:42 Lovenox SC 01/27/20 23:59 40 mg 0900 JUANJO Administration Ferrous Sulfate 325 mg 01/26/20 08:00 01/27/20 08:38 Feosol PO Not Given QAM-WM JUANJO Furosemide 20 mg 01/26/20 09:00 01/27/20 08:42 Lasix PO 20 mg DAILY JUANJO Administration Hydrocortisone/Aloe 0 gm 01/26/20 21:00 01/27/20 08:42 Hydrocortisone 1% Cream TOP 1 applic BID JUANJO Administration Ondansetron HCl 4 mg 01/24/20 00:57 01/25/20 19:54 Zofran IVP 4 mg Q6H PRN Administration Nausea/Vomiting use 1st Sacubitril/Valsartan 1 tab 01/25/20 21:00 01/27/20 08:42 Entresto 24 Mg-26 Mg Tablet PO 1 tab BID JUANJO Administration - Exam General Appearance: NAD, awake alert Heart: RRR, no murmur, no gallops, no rubs, normal peripheral pulses Respiratory: CTAB, no wheezes, no rales, no ronchi, normal chest expansion, no tachypnea, normal percussion Gastrointestinal: soft, non-tender, non-distended, normal bowel sounds, no palpable masses, no hepatomegaly, no splenomegaly, no bruit Extremities: 1+ LE edema (Bilateral lower extremities) Skin: normal turgor Neurological: cranial nerve grossly intact, normal sensation to touch, no weakness, no focal deficits, no new deficit Musculoskeletal: normal tone, normal strength, no muscle wasting Psychiatric: normal affect, normal behavior, A&O x 3 Hosp A/P (1) Autoimmune hepatitis Code(s): K75.4 - AUTOIMMUNE HEPATITIS Status: Acute (2) Cardiomyopathy Code(s): I42.9 - CARDIOMYOPATHY, UNSPECIFIED Status: Acute (3) Acute systolic (congestive) heart failure Code(s): I50.21 - ACUTE SYSTOLIC (CONGESTIVE) HEART FAILURE Status: Acute (4) Iron deficiency anemia Code(s): D50.9 - IRON DEFICIENCY ANEMIA, UNSPECIFIED Status: Acute (5) Peripheral edema Code(s): R60.9 - EDEMA, UNSPECIFIED Status: Acute (6) Hypomagnesemia Code(s): E83.42 - HYPOMAGNESEMIA Status: Acute (7) Drug eruption Code(s): L27.0 - GEN SKIN ERUPTION DUE TO DRUGS AND MEDS TAKEN INTERNALLY Status: Acute - Plan Autoimmune hepatitis: Patient has a history of autoimmune hepatitis. She appears to have some signs of cirrhosis on imaging here. Her work-up did come back with findings consistent with autoimmune hepatitis based on her rheumatology panel. Appreciate GI consult. Currently there is no intention to resume immunosuppression therapy or steroids. GI will follow the patient up in the outpatient setting. Acute systolic congestive heart failure: Secondary to cardiomyopathy with global hypokinesis. Less likely that this would be ischemic in nature. She is currently on Entresto and Coreg. Cardiology is titrating as tolerated. Her blood pressure continues to be borderline low and limits the ability to more aggressively titrate his medications for now. Diuresing very well. Overall she appears to be improving. Had a long discussion regarding the cardiomyopathy and the likely nature of it. Explained the need for a LifeVest in the process for determining the potential need for an implantable defibrillator in the future. Presently the plan is to consider heart cath on Tuesday. Iron deficiency anemia: Patient is a menstruating female with fairly regular cycles. She received IV iron last night and appears she may have had a bit of an allergic reaction to it. Will initiate oral iron supplementation. Drug eruption: Appears to be related to the iron infusion. Will continue Benadryl and topical hydrocortisone.
--- NOTE | 2020-01-27 17:44 | PDOC.CPN ---
- Subjective Date: 01/27/20 Time: 17:43 Interval history: No new issues. No angina. - Review of Systems General: denies: fever/chills, weight/appetite/sleep changes, night sweats, fatigue Respiratory: denies: cough, congestion, shortness of breath, exercise intolerance Cardiovascular: reports: edema. denies: chest pain, palpitation, paroxysmal nocturnal dyspnea, orthopnea Gastrointestinal: denies: nausea, vomiting, diarrhea, constipation, abd pain, GI bleeding Musculoskeletal: denies: pain, tenderness, stiffness, swelling, arthritis/ arthralgias Neurological: denies: numbness, syncope, seizure, weakness - Objective Allergies/Adverse Reactions: Allergies Allergy/AdvReac Type Severity Reaction Status Date / Time amoxicillin Allergy Verified 01/24/20 01:56 Sulfa (Sulfonamide Allergy Verified 01/24/20 01:56 Antibiotics) Visit Medications: Current Medications Acetaminophen (Tylenol) 650 mg PO Q4H PRN PRN Reason: Headache/Fever/Mild Pain (1-3) Albuterol/Ipratropium (Duoneb) 3 ml NEB [id number] PRN PRN Reason: SOB &/or Wheezing Aspirin (Ecotrin) 81 mg PO DAILY [facility] Last Admin: 01/27/20 08:42 Dose: 81 mg Bisacodyl (Dulcolax) 10 mg PO DAILYPRN PRN PRN Reason: Constipation Bisacodyl (Dulcolax) 10 mg [place] DAILYPRN PRN PRN Reason: Constipation Carvedilol (Coreg) 3.125 mg PO BID-[facility] Last Admin: 01/27/20 08:42 Dose: 3.125 mg Clonidine (Catapres) 0.1 mg PO BID PRN PRN Reason: SBP > 160 use second Diazepam (Valium) 5 mg PO WILLCALL [facility] Stop: 01/28/20 06:01 Diphenhydramine HCl (Benadryl) 25 mg PO Q6H PRN PRN Reason: Itching & Insomnia Last Admin: 01/27/20 15:39 Dose: 25 mg Enoxaparin Sodium (Lovenox) 40 mg SC 0900 [facility] Stop: 01/27/20 23:59 Last Admin: 01/27/20 08:42 Dose: 40 mg Ferrous Sulfate (Feosol) 325 mg PO QAM-[facility] Last Admin: 01/27/20 08:38 Dose: Not Given Furosemide (Lasix) 20 mg PO DAILY [facility] Last Admin: 01/27/20 08:42 Dose: 20 mg Guaifenesin/Dextromethorphan (Robitussin Dm) 15 ml PO Q4H PRN PRN Reason: Cough Hydralazine HCl (Apresoline) 10 mg SLOW IVP Q6H PRN PRN Reason: SBP GREATER THAN 160 Hydrocortisone/Aloe (Hydrocortisone 1% Cream) 0 gm TOP BID [facility] Last Admin: 01/27/20 08:42 Dose: 1 applic Promethazine HCl 12.5 mg/ (Sodium Chloride) 50.5 mls @ 202 mls/hr IVPB Q6H PRN PRN Reason: Nausea/vomiting use second Sodium Chloride (Normal Saline 0.9%) 1,000 mls @ 80 mls/hr IV .[id number] [facility] Labetalol HCl (Normodyne) 20 mg SLOW IVP Q4H PRN PRN Reason: SBP > 160 use third Miscellaneous Information (Communication Order-Pharmacy) 0 each FS ONE [facility] Stop: 01/27/20 23:59 Ondansetron HCl (Zofran) 4 mg IVP Q6H PRN PRN Reason: Nausea/Vomiting use 1st Last Admin: 01/25/20 19:54 Dose: 4 mg Sacubitril/Valsartan (Entresto 24 Mg-26 Mg Tablet) 1 tab PO BID [facility] Last Admin: 01/27/20 08:42 Dose: 1 tab Sodium Chloride (Flush - Normal Saline) 10 ml IVF PRN PRN PRN Reason: Saline Flush Vital Signs & Weight: Vital Signs Temp Pulse Resp BP Pulse Ox 01/27/20 15:40 98.3 F 93 16 89/53 L 100 01/27/20 11:30 97.4 F L 98 16 91/56 L 97 01/27/20 08:50 102/61 01/27/20 07:25 97.7 F 96 16 98/56 L 100 Weight 105 lb 12.8 oz - Physical Exam General: alert & oriented x3 HEENT: mucus membranes moist Neck: supple neck Cardiac: regular rate and rhythm Lungs: normal breath sounds Neuro: grossly intact Abdomen: active bowel sounds Extremities: 1+ LE edema Skin: clear Musculoskeletal: no pain - Labs Result Diagrams: 01/26/20 04:01 08/01/20 04:01 Troponin/CKMB CK-MB (CK-2) 7.3 ng/mL (0-6.6) H* 01/24/20 04:19 Troponin I 0.027 ng/mL (< 0.028) 01/24/20 07:11 - Telemetry Sinus rhythms and dysrhythmias: sinus rhythm - Assessment/Plan Assessment/Plan: 1. Acute on chronic systolic heart failure. 2. KIRT positive. PLAN: - Continue current medical regimen. - BP borderline low and cannot up titrate any meds. - Plan on [facility] tomorrow with Dr. Hayward.
[2020-01-27 18:13] LABS: INR-International Normal Ratio 1.2; PTT 38.6 sec (22.9-36.1); Prothrombin Time 14.7 sec (12.0-14.7)
[2020-01-28] MEDS: Aspirin 81 mg Enteric Coated Tablet PO SCH (05:01)
[2020-01-28] MEDS: Ferrous Sulfate 325 MG TAB PO SCH (05:01)
[2020-01-28 05:08] LABS: Anion Gap 9 mmol/L (10-20); BUN (Urea Nitrogen) 12 mg/dL (7.0-18.7); Calc. Creatinine Clearance 67 mL/min (70-130); Calcium 8.1 mg/dL (7.8-10.44); Carbon Dioxide 24 mmol/L (22-29); Chloride 105 mmol/L (98-107); Estimated GFR-MDRD 78; Glucose 79 mg/dL (70-105); Potassium 4.3 mmol/L (3.5-5.1); Sodium 134 mmol/L (136-145)
[2020-01-28 05:22] LABS: Band 3 % (5-11); Eosinophils 5 % (0-10); Hemoglobin 10.2 g/dL (12.0-16.0); Lymphocytes 17 % (21-51); MDiff Complete? YES; Mean Corpuscular HGB CONC 30.5 g/dL (32.0-36.0); Mean Corpuscular Hemoglobin 23.7 pg (27.0-31.0); Mean Corpuscular Volume 77.7 fL (78.0-98.0); Mean Platelet Volume 8.4 fL (7.4-10.4); Monocytes 14 % (0-10); Neutrophil 61 % (42-75); Platelet Count 380 thou/uL (130-400); RBC Distribution Width 17.4 % (11.5-14.5); Red Blood Cell (RBC) Count 4.32 mill/uL (4.20-5.40); White Blood Cell (WBC) Count 5.4 thou/uL (4.8-10.8)
[2020-01-28] MEDS ORDERED: Sodium Chloride 0.9% 1,000 ML IV SCH (06:00)
[2020-01-28] MEDS ORDERED: Diazepam 5 MG TAB PO SCH (06:00)
[2020-01-28] MEDS ORDERED: Sodium Chloride 0.9% 200 ML IV PRN (08:33)
[2020-01-28] MEDS ORDERED: Prevnar 13-Val Conj/PF 0.5 ML SYRINGE IM ONE (09:00)
[2020-01-28] MEDS: Carvedilol 3.125 MG TAB PO SCH ×2 (09:49→17:11)
[2020-01-28] MEDS ORDERED: Iopamidol 370 76% 100 ML VIAL ONE (11:02)
[2020-01-28] MEDS: Hydrocortisone 1% Cream 30 GM TUBE TOP SCH ×2 (11:57→22:17)
[2020-01-29] MEDS: Carvedilol 3.125 MG TAB PO SCH (08:28)
[2020-01-29] MEDS: diphenhydrAMINE 25 MG CAP PO PRN (08:28)
[2020-01-29] MEDS: Ferrous Sulfate 325 MG TAB PO SCH (08:28)
--- NOTE | 2020-01-29 08:53 | DIS ---
DATE OF ADMISSION: 01/23/2020 DATE OF DISCHARGE: 01/27/2020 DISCHARGE DIAGNOSES: 1. Acute systolic congestive heart failure. 2. Cardiomyopathy, new diagnosis. 3. Autoimmune hepatitis, chronic. 4. Iron deficiency anemia, new diagnosis. 5. Peripheral edema. 6. Hypomagnesemia. 7. Drug eruption. HISTORY OF PRESENT ILLNESS: This patient is a 44-year-old female with a history of known autoimmune hepatitis, who had gone off treatment several years ago. The patient had moved to this area from [place] and had not reestablished with physician. She presented to the emergency department, reporting dyspnea on exertion and significant peripheral edema. HOSPITAL COURSE: The patient was admitted to the hospital and was seen in consultation by GI. Repeat labs were performed and she certainly had a number of autoimmune markers consistent with the autoimmune hepatitis. However, liver enzymes were not substantially elevated and therefore, it was felt this was likely not culprit and was not in need of immediate treatment. The plan was for the patient to follow up with GI physicians for further management as an outpatient. The patient also had an echocardiogram performed, which revealed an ejection fraction of approximately 15% to 20% with severe global hypokinesis and severe tricuspid regurgitation with mild elevation of pulmonary artery pressures. She was seen in consultation by Cardiology. The patient was started on carvedilol, Entresto, and Lasix. The patient had substantial improvement with her edema and her symptoms over the following days. She had some borderline hypotension with these medications limiting the ability to aggressively titrate them. She did ultimately undergo a heart catheterization, which did not reveal any significant coronary artery disease and the patient was subsequently prepared for a LifeVest and was felt to be stable for discharge. Of note, the patient did have labs indicating some iron deficiency anemia. She received a dose of IV iron to which she had some reaction causing some erythematous macules over her arms primarily, which were pruritic. This was treated with topical steroids and Benadryl and did well. PHYSICAL EXAMINATION: VITAL SIGNS: On the day of discharge, temperature was 98.3, pulse 98, respirations 16, O2 saturation 100% on room air, and blood pressure 96/56. GENERAL APPEARANCE: Age-appropriate female, in no distress. HEART: Regular without murmur. LUNGS: Clear. ABDOMEN: Benign. EXTREMITIES: No edema. DISPOSITION: The patient is discharged to home. She is to be on a heart healthy, low-sodium diet. ACTIVITY: As tolerated. She is to slowly increase her activity over a few days to see how she tolerates this level of activity, now that she has been appropriately treated. MEDICATIONS: 1. Aspirin 81 mg p.o. daily. 2. Carvedilol 3.125 mg p.o. b.i.d. 3. Diphenhydramine 25 mg p.o. q.6 hours. 4. Ferrous sulfate 325 mg p.o. q.a.m. 5. Lasix 20 mg p.o. daily. 6. Hydrocortisone topical b.i.d. 7. Entresto one p.o. b.i.d., hold for systolic less than 95. FOLLOWUP: The patient is to follow up with Dr. Hayward in the Cardiology Clinic. She will follow up with the cardiac rehab program. She will also need to follow up with Dr. Lama in the GI Clinic and to establish with a new primary care provider. The patient can return to the hospital at anytime she has the need to do so. TIME SPENT: Total time in discharge activities greater than 30 minutes. Job ID: [id number] MTDD
[2020-01-29] MEDS ORDERED: Furosemide 20 MG TAB PO SCH (09:00)
[2020-01-29] MEDS: Hydrocortisone 1% Cream 30 GM TUBE TOP SCH (09:05)
[2020-01-29 11:07] VITALS: BP 109/68; TEMP 97.9
== END 2020-01-29 13:35 | disposition home or self-care (01) | DRG 287 ==
LOC: 2NO 23:27
PROVIDERS: ADMIT Internal Medicine; ATTEND Internal Medicine
PROC: 4A023N7 Measurement of Cardiac Sampling and Pressure, Left Heart, Percutaneous Approach (ICD-10-PCS; principal; 2020-01-28)
PROC: B2111ZZ Fluoroscopy of Multiple Coronary Arteries using Low Osmolar Contrast (ICD-10-PCS; 2020-01-28)
DX: I11.0 Hypertensive heart disease with heart failure (principal); I50.23 Acute on chronic systolic (congestive) heart failure; I42.9 Cardiomyopathy, unspecified; I42.0 Dilated cardiomyopathy; K75.4 Autoimmune hepatitis; K73.9 Chronic hepatitis, unspecified; D50.9 Iron deficiency anemia, unspecified; E83.42 Hypomagnesemia; L27.0 Generalized skin eruption due to drugs and medicaments taken internally; I95.9 Hypotension, unspecified; Z88.1 Allergy status to other antibiotic agents; Z88.2 Allergy status to sulfonamides; Z88.8 Allergy status to other drugs, medicaments and biological substances
CPT/HCPCS: 36415; 36416; 36600; 76705; 76942; 80048; 80053; 80074; 82550; 82553; 82728; 83516; 83540; 83550; 83605; 83690; 83735; 83880; 84443; 84484; 84703; 85025; 85610; 85730; 86038; 86225; 86235; 93005; 93010; 93306; 93458; 94760; 97139; J1200; J1644; J1650; J1940; J2405; J2916; J3475; J3490; Q0163; Q9967

== ENCOUNTER 2022-07-27 06:05 | Inpatient (IN) | payer OTHER, SELFPAY ==
[2022-07-27] MEDS ORDERED: Furosemide 40 MG/4 ML VIAL ONE (06:47)
[2022-07-27 06:55] LABS: #Eosinphils 0.1 thou/uL (0.0-0.7); #Lymphocytes 1.7 thou/uL (1.20-3.40); #Monocytes 0.5 thou/uL (0.11-0.59); #Neutrophils 4.2 thou/uL (1.40-6.50); %Basophils 0.4 % (0.0-1.0); %Eosinophils 1.1 % (0.0-10.0); %Lymphocytes 26.1 % (21.0-51.0); %Monocytes 8.1 % (0.0-10.0); %Neutrophils 64.4 % (42.0-75.0); Hemoglobin 10.9 g/dL (12.0-16.0); Mean Corpuscular HGB CONC 31.7 g/dL (32.0-36.0); Mean Corpuscular Hemoglobin 24.9 pg (27.0-31.0); Mean Corpuscular Volume 78.7 fl (78.0-98.0); Mean Platelet Volume 8.7 fL (7.4-10.4); Platelet Count 286 10x3/uL (130-400); RBC Distribution Width 15.1 % (11.5-14.5); Red Blood Cell (RBC) Count 4.39 mill/uL (4.20-5.40); White Blood Cell (WBC) Count 6.6 10x3/uL (4.8-10.8)
[2022-07-27 07:12] LABS: ALT (SGPT) 61 U/L (8-55); AST (SGOT) 41 U/L (5-34); Albumin 3.7 g/dL (3.5-5.0); Alkaline Phosphatase 85 U/L (40-110); Anion Gap 11 mmol/L (10-20); BUN (Urea Nitrogen) 10 mg/dL (7.0-18.7); Bilirubin, Total 0.7 mg/dL (0.2-1.2); Calc. Creatinine Clearance 0 mL/min (70-130); Calcium 8.6 mg/dL (7.8-10.44); Carbon Dioxide 21 mmol/L (22-29); Chloride 107 mmol/L (98-107); Estimated GFR 80; Glucose 71 mg/dL (70-105); Potassium 3.2 mmol/L (3.5-5.1); Protein, Total 7.7 g/dL (6.0-8.3); Sodium 136 mmol/L (136-145)
[2022-07-27 07:34] LABS: CKMB 7.5 ng/mL (0-6.6)
[2022-07-27 07:46] LABS: SARS-CoV-2 NAA Rapid Test Not Detected (NotDetected)
[2022-07-27 08:19] LABS: Pregnancy Test - Urine (BHCG) Negative (Negative); Pregu Control Background? CLEAR/WHITE (CLR/WHITE); Pregu Control Bar Appear? YES (CONTROL BAR); Specific Gravity 1.006 (1.002-1.036)
[2022-07-27] MEDS ORDERED: Iopamidol-370 76% 500 ML 1 ML ONE (08:32)
[2022-07-27] MEDS ORDERED: Potassium Chloride 20 MEQ TAB ONE (08:58)
[2022-07-27] MEDS ORDERED: Fentanyl 100 MCG/2 ML VIAL ONE (08:58)
[2022-07-27] MEDS ORDERED: Magnesium 2 GM/50 ML BAG (IN WATER) ONE (08:59)
[2022-07-27] MEDS ORDERED: Sacubitril 49 MG/Valsartan 51 MG TABLET PO SCH ×3 (10:45→21:00)
[2022-07-27 11:42] LABS: Troponin I 0.107 ng/mL (< 0.028)
[2022-07-27] MEDS ORDERED: Furosemide 40 MG/4 ML VIAL SLOW IVP SCH ×2 (13:00→14:00)
[2022-07-27 14:29] LABS: Troponin I 0.092 ng/mL (< 0.028)
[2022-07-27] MEDS ORDERED: Acetaminophen 500 MG TAB PO SCH (15:00)
[2022-07-27] MEDS ORDERED: Acetaminophen 325 MG TAB PO SCH (15:00)
[2022-07-27] MEDS ORDERED: oxyCODONE 5 MG TAB PO PRN (15:17)
[2022-07-27] MEDS ORDERED: Carvedilol 3.125 MG TAB PO SCH (18:23)
[2022-07-27] MEDS ORDERED: Potassium Chloride 20 MEQ TAB PO SCH (19:45)
[2022-07-27] MEDS ORDERED: Ondansetron PF 4 MG/2 ML Vial IVP PRN (20:04)
[2022-07-27] MEDS ORDERED: Ondansetron ODT 4 MG TAB PO PRN (20:04)
[2022-07-27 20:05] LABS: Anion Gap 15 mmol/L (10-20); BUN (Urea Nitrogen) 12 mg/dL (7.0-18.7); Calc. Creatinine Clearance 58 mL/min (70-130); Calcium 8.7 mg/dL (7.8-10.44); Carbon Dioxide 21 mmol/L (22-29); Chloride 100 mmol/L (98-107); Estimated GFR 84; Glucose 98 mg/dL (70-105); Magnesium 2.1 mg/dL (1.6-2.6); Potassium 3.4 mmol/L (3.5-5.1); Sodium 133 mmol/L (136-145)
[2022-07-27] MEDS: Famotidine 20 MG TAB PO SCH (20:18)
[2022-07-27 23:34] LABS: #Basophils 0.1 thou/uL (0.0-0.2); #Eosinphils 0.1 thou/uL (0.0-0.7); #Lymphocytes 1.2 thou/uL (1.20-3.40); #Monocytes 0.5 thou/uL (0.11-0.59); #Neutrophils 5.3 thou/uL (1.40-6.50); %Basophils 0.7 % (0.0-1.0); %Eosinophils 0.8 % (0.0-10.0); %Lymphocytes 16.9 % (21.0-51.0); %Monocytes 7.4 % (0.0-10.0); %Neutrophils 74.2 % (42.0-75.0); Hemoglobin 11.3 g/dL (12.0-16.0); Mean Corpuscular HGB CONC 31.1 g/dL (32.0-36.0); Mean Corpuscular Hemoglobin 24.4 pg (27.0-31.0); Mean Corpuscular Volume 78.5 fl (78.0-98.0); Mean Platelet Volume 8.9 fL (7.4-10.4); Platelet Count 323 10x3/uL (130-400); RBC Distribution Width 15.2 % (11.5-14.5); Red Blood Cell (RBC) Count 4.61 mill/uL (4.20-5.40); White Blood Cell (WBC) Count 7.1 10x3/uL (4.8-10.8)
[2022-07-28] MEDS ORDERED: Potassium Chloride 20 MEQ TAB PO SCH (00:30)
[2022-07-28] MEDS ORDERED: Sodium Chloride 0.9% 250 ML IV SCH (04:00)
[2022-07-28 06:19] LABS: ALT (SGPT) 49 U/L (8-55); AST (SGOT) 34 U/L (5-34); Albumin 3.4 g/dL (3.5-5.0); Alkaline Phosphatase 88 U/L (40-110); Anion Gap 10 mmol/L (10-20); BUN (Urea Nitrogen) 12 mg/dL (7.0-18.7); Bilirubin, Direct 0.5 mg/dL (0.1-0.3); Bilirubin, Total 0.9 mg/dL (0.2-1.2); Calc. Creatinine Clearance 49 mL/min (70-130); Calcium 8.5 mg/dL (7.8-10.44); Carbon Dioxide 23 mmol/L (22-29); Chloride 103 mmol/L (98-107); Estimated GFR 71; Glucose 100 mg/dL (70-105); Magnesium 2.1 mg/dL (1.6-2.6); Potassium 5.1 mmol/L (3.5-5.1); Sodium 131 mmol/L (136-145)
[2022-07-28] MEDS ORDERED: Carvedilol 3.125 MG TAB PO SCH (08:00)
[2022-07-28] MEDS ORDERED: Electrolyte Replacement Protocol 1 EACH FS SCH (09:30)
[2022-07-28] MEDS: Famotidine 20 MG TAB PO SCH (09:36)
[2022-07-28] MEDS: Aspirin Chewable 81 MG TAB PO SCH (09:36)
[2022-07-28] MEDS: Albumin 25% 25 GM/100 ML BOT IVPB SCH ×2 (10:00→16:23)
[2022-07-28] MEDS ORDERED: Sodium Chloride 0.9% 500 ML IV SCH (12:00)
[2022-07-28 21:00] LABS: Actual Bicarbonate (HCO3a) 21.9 mEq/L (22-28); Base Excess (BEa) -0.1 mEq/L (-2.0 to +3.0); CO2 Tension 27.7 mmHg (35.0-45.0); Calcium, Ionized (arterial) 1.12 mmol/L (1.12-1.30); Carboxyhemoglobin (COHb) 0.2 gm% (0.0-3.0); Hemoglobin (Hb) 11.1 g/dL (12.0-16.0); Potassium - ABG Lab 4.87 mmol/L (3.70-5.30); pH, Arterial 7.52 (7.35-7.45)
[2022-07-28] MEDS ORDERED: Ipratropium/Albuterol 3 ML NEB NEB SCH (21:00)
[2022-07-28 21:03] LABS: ALV-art Gradient 636.975 mmHg (0-20); O2 Tension (PaO2), arterial 41.4 mmHg (80.0-100.0); Puncture Site RRA
[2022-07-28 21:07] LABS: #Lymphocytes 1.5 thou/uL (1.20-3.40); #Monocytes 0.8 thou/uL (0.11-0.59); %Basophils 0.5 % (0.0-1.0); %Eosinophils 0.8 % (0.0-10.0); %Lymphocytes 24.4 % (21.0-51.0); %Monocytes 11.8 % (0.0-10.0); %Neutrophils 62.5 % (42.0-75.0); Hemoglobin 10.6 g/dL (12.0-16.0); Mean Corpuscular HGB CONC 30.8 g/dL (32.0-36.0); Mean Corpuscular Hemoglobin 24.6 pg (27.0-31.0); Mean Corpuscular Volume 79.9 fl (78.0-98.0); Mean Platelet Volume 8.7 fL (7.4-10.4); Platelet Count 304 10x3/uL (130-400); RBC Distribution Width 15.1 % (11.5-14.5); Red Blood Cell (RBC) Count 4.32 mill/uL (4.20-5.40); White Blood Cell (WBC) Count 6.3 10x3/uL (4.8-10.8)
[2022-07-28 21:33] LABS: ALT (SGPT) 36 U/L (8-55); AST (SGOT) 30 U/L (5-34); Alkaline Phosphatase 69 U/L (40-110); Anion Gap 14 mmol/L (10-20); BUN (Urea Nitrogen) 19 mg/dL (7.0-18.7); Bilirubin, Total 0.8 mg/dL (0.2-1.2); Calc. Creatinine Clearance 45 mL/min (70-130); Calcium 8.8 mg/dL (7.8-10.44); Carbon Dioxide 20 mmol/L (22-29); Chloride 103 mmol/L (98-107); Estimated GFR 63; Globulin 3.2 g/dL (2.4-3.5); Glucose 76 mg/dL (70-105); Protein, Total 7.2 g/dL (6.0-8.3); Sodium 132 mmol/L (136-145)
[2022-07-28 21:37] LABS: Troponin I 0.118 ng/mL (< 0.028)
[2022-07-29 04:16] LABS: Anion Gap 12 mmol/L (10-20); BUN (Urea Nitrogen) 16 mg/dL (7.0-18.7); Calc. Creatinine Clearance 56 mL/min (70-130); Calcium 8.8 mg/dL (7.8-10.44); Carbon Dioxide 19 mmol/L (22-29); Chloride 107 mmol/L (98-107); Estimated GFR 83; Glucose 79 mg/dL (70-105); Potassium 5.1 mmol/L (3.5-5.1); Sodium 133 mmol/L (136-145)
[2022-07-29 07:55] LABS: Amphetamine Detected (NotDetected); Barbiturates Screen Not Detected (NotDetected); Benzodiazepine Screen Not Detected (NotDetected); Cocaine Metabolite Screen Not Detected (NotDetected); Methadone Not Detected (NotDetected); Methamphetamine Detected (NotDetected); Opiate Screen Not Detected (NotDetected); Oxycodone Screen Not Detected (NotDetected); Phencyclidine (PCP) Not Detected (NotDetected); THC/Cannabinoid Screen Not Detected (NotDetected); Tricyclic Screen Not Detected (NotDetected)
[2022-07-29] MEDS ORDERED: Magnesium 2 GM/50 ML(in water) 2 GM in Premix Bag 1 BAG IVPB SCH (08:00)
[2022-07-29] MEDS ORDERED: Famotidine 20 MG TAB PO SCH (09:00)
[2022-07-29] MEDS: Aspirin Chewable 81 MG TAB PO SCH (09:36)
[2022-07-29] MEDS: Albumin 25% 25 GM/100 ML BOT IVPB SCH ×3 (12:48→23:37)
[2022-07-29] MEDS: Famotidine 20 MG TAB PO SCH (20:05)
[2022-07-29] MEDS: HYDROcodone/Acetaminophen 5/325 mg Tablet PO PRN (20:06)
[2022-07-30] MEDS ORDERED: ALPRAZolam 0.25 MG TAB PO SCH (00:45)
[2022-07-30 04:21] LABS: #Basophils 0.1 thou/uL (0.0-0.2); #Eosinphils 0.1 thou/uL (0.0-0.7); #Lymphocytes 1.5 thou/uL (1.20-3.40); #Monocytes 0.6 thou/uL (0.11-0.59); #Neutrophils 3.7 thou/uL (1.40-6.50); %Basophils 1.1 % (0.0-1.0); %Eosinophils 1.4 % (0.0-10.0); %Monocytes 9.7 % (0.0-10.0); %Neutrophils 62.8 % (42.0-75.0); Hemoglobin 10.2 g/dL (12.0-16.0); Mean Corpuscular HGB CONC 31.4 g/dL (32.0-36.0); Mean Corpuscular Hemoglobin 24.7 pg (27.0-31.0); Mean Corpuscular Volume 78.6 fl (78.0-98.0); Platelet Count 293 10x3/uL (130-400); RBC Distribution Width 15.3 % (11.5-14.5); Red Blood Cell (RBC) Count 4.12 mill/uL (4.20-5.40); White Blood Cell (WBC) Count 5.9 10x3/uL (4.8-10.8)
[2022-07-30 04:43] LABS: Anion Gap 12 mmol/L (10-20); BUN (Urea Nitrogen) 21 mg/dL (7.0-18.7); Calc. Creatinine Clearance 49 mL/min (70-130); Calcium 9.4 mg/dL (7.8-10.44); Carbon Dioxide 22 mmol/L (22-29); Chloride 106 mmol/L (98-107); Estimated GFR 70; Glucose 75 mg/dL (70-105); Magnesium 2.4 mg/dL (1.6-2.6); Potassium 4.9 mmol/L (3.5-5.1); Sodium 135 mmol/L (136-145)
[2022-07-30] MEDS: Albumin 25% 25 GM/100 ML BOT IVPB SCH (05:14)
[2022-07-30] MEDS: Famotidine 20 MG TAB PO SCH ×2 (08:47→20:21)
[2022-07-30] MEDS: Aspirin Chewable 81 MG TAB PO SCH (08:47)
[2022-07-30] MEDS ORDERED: Polyethylene Glycol 3350 17 GM Packet PO PRN (10:11)
[2022-07-30] MEDS ORDERED: diphenhydrAMINE 25 MG CAP PO PRN (18:43)
[2022-07-30] MEDS ORDERED: diphenhydrAMINE 25 MG CAP PO SCH (18:45)
[2022-07-30] MEDS: Senokot S 8.6-50 MG TAB PO SCH (20:21)
[2022-07-30] MEDS: Milrinone Lactate/D5W 20 MG in Premix Bag 1 BAG IV SCH (20:47)
[2022-07-30] MEDS: HYDROcodone/Acetaminophen 5/325 mg Tablet PO PRN (21:52)
[2022-07-31 04:38] LABS: #Eosinphils 0.1 thou/uL (0.0-0.7); #Monocytes 0.6 thou/uL (0.11-0.59); #Neutrophils 3.4 thou/uL (1.40-6.50); %Basophils 0.3 % (0.0-1.0); %Lymphocytes 20.1 % (21.0-51.0); %Monocytes 11.2 % (0.0-10.0); %Neutrophils 67.4 % (42.0-75.0); Hemoglobin 9.5 g/dL (12.0-16.0); Mean Corpuscular HGB CONC 32.1 g/dL (32.0-36.0); Mean Corpuscular Hemoglobin 25.2 pg (27.0-31.0); Mean Corpuscular Volume 78.6 fl (78.0-98.0); Mean Platelet Volume 9.2 fL (7.4-10.4); Platelet Count 270 10x3/uL (130-400); RBC Distribution Width 15.4 % (11.5-14.5); Red Blood Cell (RBC) Count 3.78 mill/uL (4.20-5.40)
[2022-07-31 04:55] LABS: Anion Gap 12 mmol/L (10-20); BUN (Urea Nitrogen) 16 mg/dL (7.0-18.7); Calc. Creatinine Clearance 65 mL/min (70-130); Calcium 9.4 mg/dL (7.8-10.44); Carbon Dioxide 18 mmol/L (22-29); Chloride 109 mmol/L (98-107); Estimated GFR 92; Glucose 84 mg/dL (70-105); Magnesium 1.9 mg/dL (1.6-2.6); Potassium 4.3 mmol/L (3.5-5.1); Sodium 135 mmol/L (136-145)
[2022-07-31] MEDS ORDERED: Torsemide 10 MG TAB PO SCH ×2 (07:15→09:00)
[2022-07-31] MEDS ORDERED: Sodium Bicarbonate 150 MEQ in Dextrose 5% in Water 500 ML IV SCH (08:00)
[2022-07-31] MEDS ORDERED: Magnesium 2 GM/50 ML(in water) 2 GM in Premix Bag 1 BAG IVPB SCH (08:00)
[2022-07-31] MEDS: Famotidine 20 MG TAB PO SCH ×2 (08:02→20:46)
[2022-07-31] MEDS: Aspirin Chewable 81 MG TAB PO SCH (08:03)
[2022-07-31] MEDS: Senokot S 8.6-50 MG TAB PO SCH ×2 (20:47→21:00)
[2022-07-31] MEDS: Milrinone Lactate/D5W 20 MG in Premix Bag 1 BAG IV SCH (20:55)
[2022-08-01 04:52] LABS: #Eosinphils 0.1 thou/uL (0.0-0.7); #Monocytes 0.7 thou/uL (0.11-0.59); #Neutrophils 3.4 thou/uL (1.40-6.50); %Basophils 0.5 % (0.0-1.0); %Lymphocytes 19.4 % (21.0-51.0); %Monocytes 12.9 % (0.0-10.0); %Neutrophils 65.1 % (42.0-75.0); Hemoglobin 9.9 g/dL (12.0-16.0); Mean Corpuscular HGB CONC 31.4 g/dL (32.0-36.0); Mean Corpuscular Hemoglobin 24.6 pg (27.0-31.0); Mean Corpuscular Volume 78.3 fl (78.0-98.0); Mean Platelet Volume 8.9 fL (7.4-10.4); Platelet Count 311 10x3/uL (130-400); RBC Distribution Width 15.6 % (11.5-14.5); Red Blood Cell (RBC) Count 4.04 mill/uL (4.20-5.40); White Blood Cell (WBC) Count 5.2 10x3/uL (4.8-10.8)
[2022-08-01 05:07] LABS: Anion Gap 12 mmol/L (10-20); BUN (Urea Nitrogen) 20 mg/dL (7.0-18.7); Calc. Creatinine Clearance 53 mL/min (70-130); Calcium 9.5 mg/dL (7.8-10.44); Carbon Dioxide 22 mmol/L (22-29); Chloride 102 mmol/L (98-107); Estimated GFR 72; Glucose 80 mg/dL (70-105); Potassium 3.9 mmol/L (3.5-5.1); Sodium 132 mmol/L (136-145)
[2022-08-01] MEDS ORDERED: Magnesium 2 GM/50 ML(in water) 2 GM in Premix Bag 1 BAG IVPB SCH (08:00)
[2022-08-01] MEDS: Aspirin Chewable 81 MG TAB PO SCH (09:21)
[2022-08-01] MEDS: Famotidine 20 MG TAB PO SCH ×2 (09:21→21:34)
[2022-08-01] MEDS: Carvedilol 6.25 MG TAB PO SCH ×2 (09:22→21:34)
[2022-08-01] MEDS: Senokot S 8.6-50 MG TAB PO SCH (21:35)
[2022-08-01] MEDS: Milrinone Lactate/D5W 20 MG in Premix Bag 1 BAG IV SCH (22:29)
[2022-08-02 05:40] LABS: Anion Gap 14 mmol/L (10-20); BUN (Urea Nitrogen) 16 mg/dL (7.0-18.7); Calc. Creatinine Clearance 56 mL/min (70-130); Calcium 9.1 mg/dL (7.8-10.44); Carbon Dioxide 17 mmol/L (22-29); Chloride 106 mmol/L (98-107); Estimated GFR 83; Glucose 94 mg/dL (70-105); Magnesium 1.9 mg/dL (1.6-2.6); Potassium 5.5 mmol/L (3.5-5.1); Sodium 131 mmol/L (136-145)
[2022-08-02] MEDS ORDERED: Magnesium 2 GM/50 ML(in water) 2 GM in Premix Bag 1 BAG IVPB SCH (08:00)
[2022-08-02] MEDS: Carvedilol 6.25 MG TAB PO SCH ×2 (08:42→20:12)
[2022-08-02] MEDS: Famotidine 20 MG TAB PO SCH ×2 (08:42→20:13)
[2022-08-02] MEDS: Aspirin Chewable 81 MG TAB PO SCH (08:42)
[2022-08-02] MEDS ORDERED: Sodium Bicarbonate 150 MEQ in Dextrose 5% in Water 1,000 ML IV SCH (09:00)
[2022-08-02] MEDS ORDERED: Cosyntropin 250 MCG VIAL SLOW IVP SCH (09:00)
[2022-08-02] MEDS ORDERED: Furosemide 20 MG/2 ML VIAL SLOW IVP SCH (13:00)
[2022-08-02 15:23] LABS: Anion Gap 15 mmol/L (10-20); BUN (Urea Nitrogen) 16 mg/dL (7.0-18.7); Calc. Creatinine Clearance 52 mL/min (70-130); Calcium 9.5 mg/dL (7.8-10.44); Carbon Dioxide 18 mmol/L (22-29); Chloride 105 mmol/L (98-107); Estimated GFR 76; Glucose 93 mg/dL (70-105); Potassium 4.1 mmol/L (3.5-5.1); Sodium 134 mmol/L (136-145)
[2022-08-02] MEDS: Senokot S 8.6-50 MG TAB PO SCH (20:06)
[2022-08-03] MEDS: Milrinone Lactate/D5W 20 MG in Premix Bag 1 BAG IV SCH (03:22)
[2022-08-03 04:11] LABS: #Eosinphils 0.1 thou/uL (0.0-0.7); #Lymphocytes 1.8 thou/uL (1.20-3.40); #Monocytes 0.7 thou/uL (0.11-0.59); #Neutrophils 3.6 thou/uL (1.40-6.50); %Basophils 0.7 % (0.0-1.0); %Eosinophils 1.4 % (0.0-10.0); %Lymphocytes 28.2 % (21.0-51.0); %Monocytes 11.5 % (0.0-10.0); %Neutrophils 58.1 % (42.0-75.0); Hemoglobin 9.9 g/dL (12.0-16.0); Mean Corpuscular HGB CONC 31.9 g/dL (32.0-36.0); Mean Corpuscular Hemoglobin 24.9 pg (27.0-31.0); Mean Corpuscular Volume 78.2 fl (78.0-98.0); Mean Platelet Volume 8.3 fL (7.4-10.4); Platelet Count 338 10x3/uL (130-400); RBC Distribution Width 15.9 % (11.5-14.5); Red Blood Cell (RBC) Count 3.99 mill/uL (4.20-5.40); White Blood Cell (WBC) Count 6.2 10x3/uL (4.8-10.8)
[2022-08-03 04:36] LABS: Anion Gap 13 mmol/L (10-20); BUN (Urea Nitrogen) 16 mg/dL (7.0-18.7); Calc. Creatinine Clearance 57 mL/min (70-130); Calcium 9.2 mg/dL (7.8-10.44); Carbon Dioxide 19 mmol/L (22-29); Chloride 104 mmol/L (98-107); Estimated GFR 84; Glucose 90 mg/dL (70-105); Potassium 4.1 mmol/L (3.5-5.1); Sodium 132 mmol/L (136-145)
[2022-08-03] MEDS ORDERED: Magnesium 2 GM/50 ML(in water) 2 GM in Premix Bag 1 BAG IVPB SCH (08:00)
[2022-08-03] MEDS: Furosemide 20 MG TAB PO SCH ×2 (10:08→21:32)
[2022-08-03] MEDS: Digoxin 0.125 MG TAB PO SCH (10:08)
[2022-08-03] MEDS: Carvedilol 6.25 MG TAB PO SCH (10:08)
[2022-08-03] MEDS: Aspirin Chewable 81 MG TAB PO SCH (10:08)
[2022-08-03] MEDS: Famotidine 20 MG TAB PO SCH ×2 (10:08→21:32)
[2022-08-03] MEDS ORDERED: Carvedilol 6.25 MG TAB PO SCH (21:00)
[2022-08-03] MEDS: Senokot S 8.6-50 MG TAB PO SCH (21:32)
[2022-08-03] MEDS ORDERED: Melatonin 3 MG TAB PO SCH (22:15)
[2022-08-03 22:31] LABS: Anion Gap 13 mmol/L (10-20); BUN (Urea Nitrogen) 14 mg/dL (7.0-18.7); Calc. Creatinine Clearance 55 mL/min (70-130); Calcium 9.1 mg/dL (7.8-10.44); Carbon Dioxide 20 mmol/L (22-29); Chloride 104 mmol/L (98-107); Estimated GFR 82; Glucose 113 mg/dL (70-105); Potassium 4.3 mmol/L (3.5-5.1); Sodium 133 mmol/L (136-145)
[2022-08-04 04:55] LABS: #Basophils 0.1 thou/uL (0.0-0.2); #Eosinphils 0.1 thou/uL (0.0-0.7); #Lymphocytes 1.6 thou/uL (1.20-3.40); #Monocytes 0.7 thou/uL (0.11-0.59); #Neutrophils 3.8 thou/uL (1.40-6.50); %Basophils 0.9 % (0.0-1.0); %Lymphocytes 25.9 % (21.0-51.0); %Monocytes 11.7 % (0.0-10.0); %Neutrophils 60.5 % (42.0-75.0); Hemoglobin 9.9 g/dL (12.0-16.0); Mean Corpuscular HGB CONC 32.5 g/dL (32.0-36.0); Mean Corpuscular Hemoglobin 25.6 pg (27.0-31.0); Mean Corpuscular Volume 78.7 fl (78.0-98.0); Mean Platelet Volume 8.5 fL (7.4-10.4); Platelet Count 344 10x3/uL (130-400); Red Blood Cell (RBC) Count 3.89 mill/uL (4.20-5.40); White Blood Cell (WBC) Count 6.2 10x3/uL (4.8-10.8)
[2022-08-04 04:56] LABS: Anion Gap 12 mmol/L (10-20); BUN (Urea Nitrogen) 15 mg/dL (7.0-18.7); Calc. Creatinine Clearance 60 mL/min (70-130); Calcium 8.7 mg/dL (7.8-10.44); Carbon Dioxide 19 mmol/L (22-29); Chloride 104 mmol/L (98-107); Estimated GFR 91; Glucose 91 mg/dL (70-105); Magnesium 1.9 mg/dL (1.6-2.6); Potassium 4.2 mmol/L (3.5-5.1); Sodium 131 mmol/L (136-145)
[2022-08-04] MEDS: Milrinone Lactate/D5W 20 MG in Premix Bag 1 BAG IV SCH (06:45)
[2022-08-04] MEDS ORDERED: Magnesium 2 GM/50 ML(in water) 2 GM in Premix Bag 1 BAG IVPB SCH ×2 (08:00→09:00)
[2022-08-04] MEDS: Carvedilol 6.25 MG TAB PO SCH ×2 (10:05→21:34)
[2022-08-04] MEDS: Aspirin Chewable 81 MG TAB PO SCH (10:05)
[2022-08-04] MEDS: Digoxin 0.125 MG TAB PO SCH (10:05)
[2022-08-04] MEDS: Famotidine 20 MG TAB PO SCH ×2 (10:06→21:34)
[2022-08-04] MEDS: Torsemide 10 MG TAB PO SCH (11:36)
[2022-08-04 14:16] VITALS: BMI 17.9
[2022-08-04] MEDS ORDERED: Milrinone Lactate/D5W 20 MG in Premix Bag 1 BAG IV SCH (16:00)
[2022-08-04] MEDS: Melatonin 3 MG TAB PO SCH (21:34)
[2022-08-04] MEDS: Senokot S 8.6-50 MG TAB PO SCH (22:07)
[2022-08-05 06:10] LABS: #Eosinphils 0.1 thou/uL (0.0-0.7); #Lymphocytes 1.5 thou/uL (1.20-3.40); #Monocytes 0.8 thou/uL (0.11-0.59); #Neutrophils 3.8 thou/uL (1.40-6.50); %Basophils 0.7 % (0.0-1.0); %Eosinophils 1.8 % (0.0-10.0); %Lymphocytes 23.5 % (21.0-51.0); %Monocytes 13.5 % (0.0-10.0); %Neutrophils 60.5 % (42.0-75.0); Hemoglobin 10.6 g/dL (12.0-16.0); Mean Corpuscular HGB CONC 32.2 g/dL (32.0-36.0); Mean Corpuscular Hemoglobin 25.4 pg (27.0-31.0); Mean Corpuscular Volume 78.9 fl (78.0-98.0); Mean Platelet Volume 8.1 fL (7.4-10.4); Platelet Count 377 10x3/uL (130-400); RBC Distribution Width 16.1 % (11.5-14.5); Red Blood Cell (RBC) Count 4.19 mill/uL (4.20-5.40); White Blood Cell (WBC) Count 6.2 10x3/uL (4.8-10.8)
[2022-08-05 06:18] LABS: Anion Gap 10 mmol/L (10-20); BUN (Urea Nitrogen) 18 mg/dL (7.0-18.7); Calc. Creatinine Clearance 57 mL/min (70-130); Calcium 8.9 mg/dL (7.8-10.44); Carbon Dioxide 19 mmol/L (22-29); Chloride 105 mmol/L (98-107); Estimated GFR 86; Glucose 87 mg/dL (70-105); Magnesium 1.7 mg/dL (1.6-2.6); Potassium 4.3 mmol/L (3.5-5.1); Sodium 130 mmol/L (136-145)
[2022-08-05] MEDS: Digoxin 0.125 MG TAB PO SCH (07:39)
[2022-08-05] MEDS: Aspirin Chewable 81 MG TAB PO SCH (07:39)
[2022-08-05] MEDS: Famotidine 20 MG TAB PO SCH ×2 (07:39→20:39)
[2022-08-05] MEDS: Torsemide 10 MG TAB PO SCH (07:40)
[2022-08-05] MEDS: Carvedilol 6.25 MG TAB PO SCH ×2 (07:40→20:39)
[2022-08-05] MEDS ORDERED: Magnesium 2 GM/50 ML(in water) 2 GM in Premix Bag 1 BAG IVPB SCH (08:00)
[2022-08-05] MEDS: Fludrocortisone Acetate 0.1 MG TAB PO SCH (10:51)
[2022-08-05] MEDS: Magnesium Oxide 400 MG TAB PO SCH ×2 (10:51→20:39)
[2022-08-05] MEDS: Melatonin 3 MG TAB PO SCH (20:39)
[2022-08-05] MEDS: Senokot S 8.6-50 MG TAB PO SCH (20:40)
[2022-08-06 05:09] LABS: #Basophils 0.1 thou/uL (0.0-0.2); #Eosinphils 0.1 thou/uL (0.0-0.7); #Lymphocytes 1.4 thou/uL (1.20-3.40); #Neutrophils 4.6 thou/uL (1.40-6.50); %Basophils 1.1 % (0.0-1.0); %Eosinophils 1.9 % (0.0-10.0); %Lymphocytes 19.5 % (21.0-51.0); %Monocytes 13.5 % (0.0-10.0); %Neutrophils 64.1 % (42.0-75.0); Hemoglobin 10.5 g/dL (12.0-16.0); Mean Corpuscular Volume 77.9 fl (78.0-98.0); Mean Platelet Volume 8.4 fL (7.4-10.4); Platelet Count 360 10x3/uL (130-400); RBC Distribution Width 15.9 % (11.5-14.5); White Blood Cell (WBC) Count 7.2 10x3/uL (4.8-10.8)
[2022-08-06 05:32] LABS: Anion Gap 11 mmol/L (10-20); BUN (Urea Nitrogen) 17 mg/dL (7.0-18.7); Calc. Creatinine Clearance 58 mL/min (70-130); Calcium 9.1 mg/dL (7.8-10.44); Carbon Dioxide 21 mmol/L (22-29); Chloride 103 mmol/L (98-107); Estimated GFR 86; Glucose 97 mg/dL (70-105); Magnesium 1.8 mg/dL (1.6-2.6); Sodium 131 mmol/L (136-145)
[2022-08-06] MEDS ORDERED: Magnesium 2 GM/50 ML(in water) 2 GM in Premix Bag 1 BAG IVPB SCH (08:00)
[2022-08-06] MEDS ORDERED: Potassium Chloride 20 MEQ TAB PO SCH ×2 (09:34→09:45)
[2022-08-06] MEDS: Aspirin Chewable 81 MG TAB PO SCH (10:02)
[2022-08-06] MEDS: Carvedilol 6.25 MG TAB PO SCH (10:03)
[2022-08-06] MEDS: Digoxin 0.125 MG TAB PO SCH (10:05)
[2022-08-06] MEDS: Fludrocortisone Acetate 0.1 MG TAB PO SCH (10:07)
[2022-08-06] MEDS: Magnesium Oxide 400 MG TAB PO SCH (10:07)
[2022-08-06] MEDS: Torsemide 10 MG TAB PO SCH (10:08)
[2022-08-06] MEDS: Famotidine 20 MG TAB PO SCH (10:12)
[2022-08-06 12:00] VITALS: BP 118/72; TEMP 97.5
[2022-08-07] MEDS ORDERED: Potassium Chloride 20 MEQ TAB PO SCH (08:00)
== END 2022-08-06 14:37 | disposition home or self-care (01) | DRG 917 ==
LOC: ERS 06:05 → ERHOLD 08:40 → OBSVTOIN 10:16 → 2SW 13:09 → CCU 07-28 21:04 → IMCU/EMU 08-01 04:53 → 2SW 08-05 18:41
PROVIDERS: ADMIT Hospitalist; ATTEND Hospitalist
PROC: 5A09357 Assistance with Respiratory Ventilation, Less than 24 Consecutive Hours, Continuous Positive Airway Pressure (ICD-10-PCS; principal; 2022-07-28)
PROC: 5A0935A Assistance with Respiratory Ventilation, Less than 24 Consecutive Hours, High Flow/Velocity Cannula (ICD-10-PCS; 2022-07-29)
DX: T43.651A Poisoning by methamphetamines accidental (unintentional), initial encounter (principal); I21.A1 Myocardial infarction type 2; I50.23 Acute on chronic systolic (congestive) heart failure; J96.01 Acute respiratory failure with hypoxia; I47.20 Ventricular tachycardia, unspecified; E87.1 Hypo-osmolality and hyponatremia; E87.20 Acidosis, unspecified; E87.3 Alkalosis; M87.88 Other osteonecrosis, other site; I42.8 Other cardiomyopathies; Z20.822 Contact with and (suspected) exposure to COVID-19; K75.4 Autoimmune hepatitis; E87.6 Hypokalemia; I08.1 Rheumatic disorders of both mitral and tricuspid valves; I95.89 Other hypotension; E83.42 Hypomagnesemia; F15.10 Other stimulant abuse, uncomplicated; D53.9 Nutritional anemia, unspecified; D50.9 Iron deficiency anemia, unspecified; L27.0 Generalized skin eruption due to drugs and medicaments taken internally; T44.7X6A Underdosing of beta-adrenoreceptor antagonists, initial encounter; I27.20 Pulmonary hypertension, unspecified; Z88.1 Allergy status to other antibiotic agents; Z88.2 Allergy status to sulfonamides; Z79.899 Other long term (current) drug therapy; Z79.82 Long term (current) use of aspirin; Z98.890 Other specified postprocedural states; Z82.49 Family history of ischemic heart disease and other diseases of the circulatory system; Z91.199 Patient's noncompliance with other medical treatment and regimen due to unspecified reason
CPT/HCPCS: 36415; 36600; 71045; 71275; 78451; 80048; 80053; 80076; 80306; 80400; 81025; 82553; 82805; 83605; 83735; 83880; 84443; 84484; 85025; 87811; 93005; 93010; 93306; 93798; 94640; 94660; 96365; 96375; A9540; G0378; J0834; J1650; J1940; J2260; J2405; J3010; J3475; J3490; J7030; J7070; J7620; P9047; Q9967